=== PATIENT | female | born 1965 | race Caucasian/White ===

== ENCOUNTER 2018-06-05 13:46 | Inpatient (IN) | payer OTHER ==
[2018-06-05] MEDS ORDERED: morphine 4 MG/ML VIAL IV (14:00)
[2018-06-05 14:19] LABS: ADD MAN DIFF? NO
[2018-06-05 14:25] LABS: BASOPHIL # 0.1 10^3/ul (0.0-0.1); BASOPHILS % 0.5 % (0.0-2.0); EOSINOPHILS # 0.1 10^3/ul (0.0-0.5); EOSINOPHILS % 0.5 % (0.0-7.0); HEMOGLOBIN 11.1 g/dl (12.0-16.0); LYMPHOCYTES % 16.3 % (15.0-51.0); MEAN CORPUSCULAR HEMOGLOBIN 22.8 pg (29.0-33.0); MEAN CORPUSCULAR HGB CONC 31.7 g/dl (32.0-37.0); MEAN CORPUSCULAR VOLUME 71.9 fl (82.0-101.0); MEAN PLATELET VOLUME 9.6 fl (7.4-10.4); MONOCYTE # 0.9 10^3/ul (0.3-0.9); MONOCYTES % 7.3 % (0.0-11.0); NEUTROPHIL # 9.4 10^3/ul (1.6-7.5); NEUTROPHILS % 74.8 % (39.0-77.0); PLATELET COUNT 265 10^3/UL (140-415); RED BLOOD COUNT 4.87 10^6/ul (4.20-5.40); RED CELL DISTRIBUTION WIDTH 15.8 % (11.5-14.5)
[2018-06-05 14:25] LABS: WHITE BLOOD COUNT 12.5 10^3/ul (4.8-10.8)
[2018-06-05 14:42] LABS: ALANINE AMINOTRANSFERASE 27 IU/L (13-69); ALBUMIN 4.6 g/dl (3.3-4.9); ALBUMIN/GLOBULIN RATIO 1.35; ALKALINE PHOSPHATASE 100 IU/L (42-121); ANION GAP 14 (5-13); ASPARTATE AMINO TRANSFERASE 31 IU/L (15-46); BILIRUBIN,INDIRECT 0.4 mg/dl (0-1.1); BILIRUBIN,TOTAL 0.4 mg/dl (0.2-1.3); BLOOD UREA NITROGEN 13 mg/dl (7-20); CALCIUM 9.6 mg/dl (8.4-10.2); CARBON DIOXIDE 25 mmol/L (21-31); CHLORIDE 101 mmol/L (97-110); CREATININE 0.41 mg/dl (0.44-1.00); Estimated GFR > 60 mL/min (>60); GLUCOSE 119 mg/dl (70-220); LIPASE 60 U/L (23-300); POTASSIUM 3.5 mmol/L (3.5-5.1); SODIUM 140 mmol/L (135-144)
[2018-06-05] MEDS: HYDROmorphONE 0.5 MG/0.5 ML SYG IV ×2 (14:57→20:13)
[2018-06-05] MEDS: ONDANSETRON 4 MG INJ IV ×2 (14:57→20:12)
[2018-06-05] MEDS: SOD CHLORIDE 0.9% 1,000 ML IV (15:28)
[2018-06-05] MEDS: HYDROmorphONE 2 MG/ML SYG IV ×2 (15:28→16:53)
[2018-06-05 16:15] LABS: ADD UMIC NO; UR ASCORBIC ACID NEGATIVE (NEGATIVE); UR BILIRUBIN (Dip) NEGATIVE (NEGATIVE); UR BLOOD (Dip) NEGATIVE (NEGATIVE); UR CLARITY CLEAR (CLEAR); UR COLOR YELLOW (YELLOW); UR GLUCOSE (Dip) NEGATIVE (NEGATIVE); UR KETONES (Dip) NEGATIVE (NEGATIVE); UR LEUKOCYTE ESTERASE (Dip) NEGATIVE Leu/ul (NEGATIVE); UR NITRITE (Dip) NEGATIVE (NEGATIVE); UR SPECIFIC GRAVITY (Dip) 1.024 (1.003-1.030); UR TOTAL PROTEIN (Dip) NEGATIVE (NEGATIVE); UR UROBILINOGEN (Dip) NEGATIVE (NEGATIVE)
[2018-06-05 16:39] LABS: OCCULT BLOOD STOOL POSITIVE (NEGATIVE)
[2018-06-05] MEDS ORDERED: ACETAMINOPHEN 325 MG TAB PO (17:30)
[2018-06-05] MEDS ORDERED: ONDANSETRON 4 MG INJ IV (17:30)
[2018-06-05] MEDS ORDERED: NACL 0.9% 3 ML SYG IV (20:00)
[2018-06-05] MEDS: FAMOTIDINE 20 MG INJ IV (20:12)
[2018-06-05] MEDS: DEXTROSE 5%-0.45% NACL 1,000 ML IV (22:06)
[2018-06-05] MEDS: HYDROmorphONE 1 MG/ML SYG IV (22:15)
[2018-06-06] MEDS: HYDROmorphONE 1 MG/ML SYG IV ×3 (01:18→07:13)
[2018-06-06] MEDS: ONDANSETRON 4 MG INJ IV ×2 (03:17→16:01)
[2018-06-06] MEDS: DEXTROSE 5%-0.45% NACL 1,000 ML IV ×4 (03:34→22:01)
[2018-06-06 05:45] LABS: ABNORMAL IP MESSAGE 1; HEMATOCRIT 37.7 % (37.0-47.0); MEAN CORPUSCULAR HEMOGLOBIN 22.7 pg (29.0-33.0); MEAN CORPUSCULAR HGB CONC 31.8 g/dl (32.0-37.0); MEAN CORPUSCULAR VOLUME 71.3 fl (82.0-101.0); MEAN PLATELET VOLUME 10.5 fl (7.4-10.4); PLATELET COUNT 335 10^3/UL (140-415); RED BLOOD COUNT 5.29 10^6/ul (4.20-5.40); RED CELL DISTRIBUTION WIDTH 16.1 % (11.5-14.5)
[2018-06-06 05:45] LABS: WHITE BLOOD COUNT 25.4 10^3/ul (4.8-10.8)
[2018-06-06 05:54] LABS: ADD MAN DIFF? YES; POSITIVE DIFF @See below
[2018-06-06 06:28] LABS: ALANINE AMINOTRANSFERASE 24 IU/L (13-69); ALBUMIN/GLOBULIN RATIO 1.33; ALKALINE PHOSPHATASE 90 IU/L (42-121); ANION GAP 12 (5-13); ASPARTATE AMINO TRANSFERASE 21 IU/L (15-46); BILIRUBIN,INDIRECT 0.5 mg/dl (0-1.1); BILIRUBIN,TOTAL 0.5 mg/dl (0.2-1.3); BLOOD UREA NITROGEN 17 mg/dl (7-20); CALCIUM 8.8 mg/dl (8.4-10.2); CARBON DIOXIDE 21 mmol/L (21-31); CHLORIDE 104 mmol/L (97-110); CREATININE 0.47 mg/dl (0.44-1.00); Estimated GFR > 60 mL/min (>60); GLUCOSE 175 mg/dl (70-220); MAGNESIUM 1.8 mg/dl (1.7-2.5); POTASSIUM 3.6 mmol/L (3.5-5.1); SODIUM 137 mmol/L (135-144)
[2018-06-06] MEDS: LEVOTHYROXINE 25 MCG TAB PO (07:30)
[2018-06-06] MEDS ORDERED: PANTOPRAZOLE (EC) 40 MG TAB PO (07:30)
[2018-06-06 08:02] LABS: ANISOCYTOSIS 2+ (0-0); BAND NEUTROPHILS #M 1.7 10^3/ul (0.0-0.6); BAND NEUTROPHILS % (M) 7 % (0-4); ELLIPTO 1+ (0-0); LYMPHOCYTES #M 1.2 10^3/ul (0.8-2.9); LYMPHOCYTES % (M) 5 % (15-51); MICROCYTOSIS 2+ (0-0); MONOCYTE #M 0.5 10^3/ul (0.3-0.9); MONOCYTES % (M) 2 % (0-11); OVALOCYTES 1+ (0-0); PLATELET ESTIMATE NORMAL; POIKILOCYTOSIS 3+ (0-0); POLYCHROMASIA 1+ (0-0); REACTIVE LYMPHOCYTES% (M) 4 % (0-0); SEG NEUT #M 21.3 10^3/ul (1.6-7.5); SEGMENTED NEUTROPHILS (M) % 82 % (39-77); SMUDGE%M 4 % (0-0)
[2018-06-06] MEDS: FAMOTIDINE 20 MG INJ IV ×2 (08:18→20:29)
[2018-06-06] MEDS: oxyCODONE (CR) 15 MG TAB [oxyCONTIN] PO ×2 (08:18→20:29)
[2018-06-06] MEDS: DULOXETINE 30 MG CAP DR PO (08:18)
[2018-06-06] MEDS: HYDROmorphONE 2 MG/ML SYG IV ×4 (10:21→22:05)
[2018-06-06] MEDS ORDERED: RIFAXIMIN 550 MG TAB PO (14:00)
[2018-06-06] MEDS: metroNIDAZOLE 500 MG TAB PO ×2 (14:16→22:01)
[2018-06-06] MEDS: LACTATED RINGER'S 500 ML IV (14:18)
[2018-06-06 14:20] LABS: THYROID STIMULATING HORMONE 0.882 MIU/L (0.465-4.680)
[2018-06-06] MEDS: VANCOMYCIN HCL 250 MG/5ML POSYG PO ×2 (15:02→18:48)
[2018-06-07] MEDS: ONDANSETRON 4 MG INJ IV ×2 (00:39→12:04)
[2018-06-07] MEDS: VANCOMYCIN HCL 250 MG/5ML POSYG PO ×5 (01:39→22:53)
[2018-06-07] MEDS: DIPHENHYDRAMINE 50 MG INJ IV (01:39)
[2018-06-07] MEDS: HYDROmorphONE 2 MG/ML SYG IV ×6 (02:02→22:52)
[2018-06-07] MEDS: ALTEPLASE (CATHFLO) 2 MG INJ CATHETER ×2 (06:18→07:02)
[2018-06-07] MEDS: LEVOTHYROXINE 50 MCG TAB PO (07:06)
[2018-06-07] MEDS: metroNIDAZOLE 500 MG TAB PO ×3 (07:07→21:10)
[2018-06-07] MEDS: oxyCODONE (CR) 15 MG TAB [oxyCONTIN] PO ×2 (08:31→20:30)
[2018-06-07] MEDS: FAMOTIDINE 20 MG INJ IV ×2 (08:31→20:31)
[2018-06-07] MEDS: DULOXETINE 30 MG CAP DR PO (08:32)
[2018-06-07] MEDS: DEXTROSE 5%-0.45% NACL 1,000 ML IV ×2 (09:12→16:41)
[2018-06-07 10:59] LABS: ADD MAN DIFF? NO
[2018-06-07 11:02] LABS: HEMOGLOBIN 8.7 g/dl (12.0-16.0); RED BLOOD COUNT 3.79 10^6/ul (4.20-5.40)
[2018-06-07 11:02] LABS: WHITE BLOOD COUNT 21.3 10^3/ul (4.8-10.8)
[2018-06-07 11:03] LABS: BASOPHIL # 0.1 10^3/ul (0.0-0.1); BASOPHILS % 0.4 % (0.0-2.0); EOSINOPHILS # 0.1 10^3/ul (0.0-0.5); EOSINOPHILS % 0.7 % (0.0-7.0); HEMATOCRIT 27.5 % (37.0-47.0); LYMPHOCYTES # 2.6 10^3/ul (0.8-2.9); LYMPHOCYTES % 12.2 % (15.0-51.0); MEAN CORPUSCULAR HGB CONC 31.6 g/dl (32.0-37.0); MEAN CORPUSCULAR VOLUME 72.6 fl (82.0-101.0); MEAN PLATELET VOLUME 10.7 fl (7.4-10.4); MONOCYTE # 1.2 10^3/ul (0.3-0.9); MONOCYTES % 5.4 % (0.0-11.0); NEUTROPHIL # 17.1 10^3/ul (1.6-7.5); NEUTROPHILS % 80.4 % (39.0-77.0); PLATELET COUNT 251 10^3/UL (140-415); RED CELL DISTRIBUTION WIDTH 15.7 % (11.5-14.5)
[2018-06-07 11:33] LABS: ALANINE AMINOTRANSFERASE 16 IU/L (13-69); ALBUMIN 3.2 g/dl (3.3-4.9); ALBUMIN/GLOBULIN RATIO 1.33; ALKALINE PHOSPHATASE 67 IU/L (42-121); ANION GAP 8 (5-13); ASPARTATE AMINO TRANSFERASE 16 IU/L (15-46); BILIRUBIN,INDIRECT 0.4 mg/dl (0-1.1); BILIRUBIN,TOTAL 0.4 mg/dl (0.2-1.3); BLOOD UREA NITROGEN 7 mg/dl (7-20); CARBON DIOXIDE 25 mmol/L (21-31); CHLORIDE 100 mmol/L (97-110); CREATININE 0.43 mg/dl (0.44-1.00); Estimated GFR > 60 mL/min (>60); GLUCOSE 364 mg/dl (70-220); POTASSIUM 3.3 mmol/L (3.5-5.1); SODIUM 133 mmol/L (135-144); TOTAL PROTEIN 5.6 g/dl (6.1-8.1)
[2018-06-07 12:25] LABS: ERYTHROCYTE SEDIMENTATION RATE 22 mm/Hr (0-30)
[2018-06-07 14:58] LABS: C-REACTIVE PROTEIN 6.9 mg/dl (0.0-0.9)
[2018-06-07] MEDS: POTASSIUM CHLORIDE (SR) 20 MEQ TAB PO (16:38)
[2018-06-08] MEDS: DEXTROSE 5%-0.45% NACL 1,000 ML IV ×3 (00:40→19:34)
[2018-06-08] MEDS: HYDROmorphONE 2 MG/ML SYG IV ×6 (02:56→22:45)
[2018-06-08] MEDS: LEVOTHYROXINE 50 MCG TAB PO (06:27)
[2018-06-08] MEDS: metroNIDAZOLE 500 MG TAB PO ×3 (06:27→21:06)
[2018-06-08] MEDS: VANCOMYCIN HCL 250 MG/5ML POSYG PO ×4 (06:27→23:27)
[2018-06-08] MEDS: oxyCODONE (CR) 15 MG TAB [oxyCONTIN] PO ×2 (09:16→21:07)
[2018-06-08] MEDS: FAMOTIDINE 20 MG INJ IV ×2 (09:52→21:07)
[2018-06-08] MEDS: DULOXETINE 30 MG CAP DR PO (09:52)
[2018-06-08 12:10] LABS: WHITE BLOOD COUNT 8.3 10^3/ul (4.8-10.8)
[2018-06-08 12:10] LABS: ADD MAN DIFF? NO; BASOPHILS % 0.4 % (0.0-2.0); EOSINOPHILS # 0.2 10^3/ul (0.0-0.5); EOSINOPHILS % 1.9 % (0.0-7.0); HEMATOCRIT 23.4 % (37.0-47.0); HEMOGLOBIN 7.3 g/dl (12.0-16.0); LYMPHOCYTES # 1.4 10^3/ul (0.8-2.9); LYMPHOCYTES % 17.3 % (15.0-51.0); MEAN CORPUSCULAR HEMOGLOBIN 22.9 pg (29.0-33.0); MEAN CORPUSCULAR HGB CONC 31.2 g/dl (32.0-37.0); MEAN CORPUSCULAR VOLUME 73.4 fl (82.0-101.0); MEAN PLATELET VOLUME 10.6 fl (7.4-10.4); MONOCYTE # 0.5 10^3/ul (0.3-0.9); MONOCYTES % 5.8 % (0.0-11.0); NEUTROPHIL # 6.2 10^3/ul (1.6-7.5); NEUTROPHILS % 74.2 % (39.0-77.0); PLATELET COUNT 211 10^3/UL (140-415); RED BLOOD COUNT 3.19 10^6/ul (4.20-5.40); RED CELL DISTRIBUTION WIDTH 15.7 % (11.5-14.5)
[2018-06-08] MEDS: DIPHENHYDRAMINE 50 MG INJ IV ×2 (14:03→23:29)
[2018-06-08 14:19] LABS: IMMEDIATE SPIN CROSSMATCH 1 1
[2018-06-08] MEDS: ZOLPIDEM 5 MG TAB PO ×2 (21:07→23:20)
[2018-06-08] MEDS ORDERED: ARTIFICIAL TEARS 15 ML OPH BOTH EYES (22:00)
[2018-06-09] MEDS: HYDROmorphONE 1 MG/ML SYG IV (01:21)
[2018-06-09] MEDS: HYDROmorphONE 2 MG/ML SYG IV ×7 (02:51→23:33)
[2018-06-09] MEDS: LORAZEPAM 2 MG INJ IV (04:52)
[2018-06-09 05:15] LABS: ADD MAN DIFF? NO
[2018-06-09 05:26] LABS: WHITE BLOOD COUNT 4.5 10^3/ul (4.8-10.8)
[2018-06-09 05:26] LABS: BASOPHILS % 0.9 % (0.0-2.0); EOSINOPHILS # 0.2 10^3/ul (0.0-0.5); EOSINOPHILS % 3.4 % (0.0-7.0); HEMATOCRIT 25.5 % (37.0-47.0); HEMOGLOBIN 7.9 g/dl (12.0-16.0); LYMPHOCYTES % 22.4 % (15.0-51.0); MEAN CORPUSCULAR HEMOGLOBIN 23.2 pg (29.0-33.0); MEAN CORPUSCULAR VOLUME 74.8 fl (82.0-101.0); MEAN PLATELET VOLUME 10.5 fl (7.4-10.4); MONOCYTE # 0.3 10^3/ul (0.3-0.9); MONOCYTES % 6.7 % (0.0-11.0); NEUTROPHILS % 66.2 % (39.0-77.0); PLATELET COUNT 176 10^3/UL (140-415); RED BLOOD COUNT 3.41 10^6/ul (4.20-5.40); RED CELL DISTRIBUTION WIDTH 15.7 % (11.5-14.5)
[2018-06-09] MEDS: ARTIFICIAL TEARS 15 ML OPH BOTH EYES ×2 (05:27→21:50)
[2018-06-09] MEDS: DEXTROSE 5%-0.45% NACL 1,000 ML IV (05:29)
[2018-06-09 05:47] LABS: PHOSPHORUS 3.1 mg/dl (2.5-4.9)
[2018-06-09 05:47] LABS: MAGNESIUM 1.4 mg/dl (1.7-2.5)
[2018-06-09] MEDS: VANCOMYCIN HCL 250 MG/5ML POSYG PO ×4 (06:03→23:34)
[2018-06-09] MEDS: metroNIDAZOLE 500 MG TAB PO ×3 (06:03→21:12)
[2018-06-09] MEDS: DIPHENHYDRAMINE 50 MG INJ IV ×3 (06:03→23:33)
[2018-06-09] MEDS: LEVOTHYROXINE 50 MCG TAB PO (06:03)
[2018-06-09 06:08] LABS: ALANINE AMINOTRANSFERASE 21 IU/L (13-69); ALBUMIN 2.9 g/dl (3.3-4.9); ALBUMIN/GLOBULIN RATIO 1.31; ALKALINE PHOSPHATASE 58 IU/L (42-121); ANION GAP 8 (5-13); ASPARTATE AMINO TRANSFERASE 24 IU/L (15-46); BILIRUBIN,INDIRECT 0.2 mg/dl (0-1.1); BILIRUBIN,TOTAL 0.2 mg/dl (0.2-1.3); CALCIUM 7.5 mg/dl (8.4-10.2); CARBON DIOXIDE 28 mmol/L (21-31); CHLORIDE 99 mmol/L (97-110); CREATININE 0.37 mg/dl (0.44-1.00); Estimated GFR > 60 mL/min (>60); SODIUM 135 mmol/L (135-144); TOTAL PROTEIN 5.1 g/dl (6.1-8.1)
[2018-06-09 06:30] LABS: BLOOD UREA NITROGEN < 2 mg/dl (7-20)
[2018-06-09 06:31] LABS: POTASSIUM 2.5 mmol/L (3.5-5.1)
[2018-06-09 06:32] LABS: GLUCOSE 484 mg/dl (70-220)
[2018-06-09 06:42] LABS: HEMOGLOBIN A1C 5.4 % (0-5.9)
[2018-06-09] MEDS: CHOLECALCIFEROL 2,000 UNIT CAP PO (09:00)
[2018-06-09] MEDS: ZINC SULFATE 220 MG CAP PO (09:00)
[2018-06-09] MEDS: DULOXETINE 30 MG CAP DR PO (09:00)
[2018-06-09] MEDS: FAMOTIDINE 20 MG INJ IV ×2 (09:13→21:12)
[2018-06-09] MEDS ORDERED: GLUCOSE GEL 15 GRAM TUBE BUCCAL (10:30)
[2018-06-09] MEDS ORDERED: GLUCOSE GEL 15 GRAM TUBE PO ×2 (10:30)
[2018-06-09] MEDS ORDERED: GLUCAGON 1 MG INJ IM (10:30)
[2018-06-09] MEDS: INSULIN ASPART [NOVOLOG] 3 ML PEN SC ×4 (10:30→21:41)
[2018-06-09] MEDS ORDERED: DEXTROSE 50% 50 ML SYRINGE IV ×2 (10:30)
[2018-06-09] MEDS: POTASSIUM CHLORIDE 40 MEQ in SOD CHLORIDE 0.9% 1,000 ML IV ×3 (10:37→21:41)
[2018-06-09 10:38] LABS: IRON 77 ug/dl (35-150)
[2018-06-09] MEDS: METHYLNALTREXONE 12 MG/0.6 ML VIAL SC (10:38)
[2018-06-09 10:48] LABS: % IRON SATURATION 38 % SAT (22-52); TOTAL IRON BINDING CAPACITY 202 ug/dl (241-421)
[2018-06-09] MEDS: MAGNESIUM SULFATE 3 GM in DEXTROSE 5% 100 ML IVPB (11:01)
[2018-06-09 13:27] LABS: ANCA SCREEN NEGATIVE (NEGATIVE)
[2018-06-09 16:04] LABS: POTASSIUM 3.2 mmol/L (3.5-5.1)
[2018-06-09] MEDS: PROPOFOL 60 ML (16:28)
[2018-06-09] MEDS ORDERED: METOCLOPRAMIDE 10 MG INJ IV (16:30)
[2018-06-09] MEDS ORDERED: HYDROmorphONE 1 MG/5 ML IV SYRINGE IV (16:30)
[2018-06-09] MEDS ORDERED: EPHEDrine SULFATE 50 MG/5 ML SYG IV (16:30)
[2018-06-09] MEDS ORDERED: hydrALAzine 20 MG INJ IV (16:30)
[2018-06-09] MEDS ORDERED: ONDANSETRON 4 MG INJ IV (16:30)
[2018-06-09] MEDS ORDERED: LABETALOL HCL 20MG INJ IV (16:30)
[2018-06-09] MEDS ORDERED: FENTAnyl 50 MCG/ML VIAL IV ×2 (16:30)
[2018-06-09 16:31] LABS: MYELOPEROXIDASE ANTIBODY <1.0 AI; PROTEINASE-3 ANTIBODY <1.0 AI
[2018-06-09] MEDS: ZOLPIDEM 5 MG TAB PO ×2 (21:12→21:48)
[2018-06-10] MEDS: INSULIN ASPART [NOVOLOG] 3 ML PEN SC ×5 (02:30→20:33)
[2018-06-10] MEDS: HYDROmorphONE 2 MG/ML SYG IV ×8 (02:49→21:58)
[2018-06-10 05:38] LABS: ADD MAN DIFF? NO
[2018-06-10 05:41] LABS: BASOPHILS % 0.8 % (0.0-2.0); EOSINOPHILS # 0.1 10^3/ul (0.0-0.5); HEMATOCRIT 27.4 % (37.0-47.0); HEMOGLOBIN 8.5 g/dl (12.0-16.0); LYMPHOCYTES # 0.8 10^3/ul (0.8-2.9); MEAN CORPUSCULAR VOLUME 74.1 fl (82.0-101.0); MONOCYTE # 0.3 10^3/ul (0.3-0.9); NEUTROPHIL # 2.5 10^3/ul (1.6-7.5); NEUTROPHILS % 67.9 % (39.0-77.0); PLATELET COUNT 215 10^3/UL (140-415); RED CELL DISTRIBUTION WIDTH 15.9 % (11.5-14.5)
[2018-06-10 05:41] LABS: WHITE BLOOD COUNT 3.7 10^3/ul (4.8-10.8)
[2018-06-10 06:11] LABS: MAGNESIUM 2.2 mg/dl (1.7-2.5)
[2018-06-10 06:11] LABS: PHOSPHORUS 4.4 mg/dl (2.5-4.9)
[2018-06-10] MEDS: metroNIDAZOLE 500 MG TAB PO ×3 (06:13→21:58)
[2018-06-10] MEDS: LEVOTHYROXINE 50 MCG TAB PO (06:13)
[2018-06-10 06:14] LABS: ANION GAP 9 (5-13); BLOOD UREA NITROGEN 3 mg/dl (7-20); CALCIUM 8.3 mg/dl (8.4-10.2); CARBON DIOXIDE 33 mmol/L (21-31); CHLORIDE 101 mmol/L (97-110); CREATININE 0.42 mg/dl (0.44-1.00); Estimated GFR > 60 mL/min (>60); GLUCOSE 87 mg/dl (70-220); POTASSIUM 3.7 mmol/L (3.5-5.1); SODIUM 143 mmol/L (135-144)
[2018-06-10] MEDS: VANCOMYCIN HCL 250 MG/5ML POSYG PO ×3 (06:14→17:33)
[2018-06-10] MEDS: DIPHENHYDRAMINE 50 MG INJ IV ×2 (06:14→12:46)
[2018-06-10] MEDS: POTASSIUM CHLORIDE 40 MEQ in SOD CHLORIDE 0.9% 1,000 ML IV ×3 (06:22→16:00)
[2018-06-10] MEDS: ARTIFICIAL TEARS 15 ML OPH BOTH EYES (06:24)
[2018-06-10] MEDS: DULOXETINE 30 MG CAP DR PO (08:51)
[2018-06-10] MEDS: ZINC SULFATE 220 MG CAP PO (08:51)
[2018-06-10] MEDS: FAMOTIDINE 20 MG INJ IV (08:51)
[2018-06-10] MEDS: CHOLECALCIFEROL 2,000 UNIT CAP PO (08:51)
[2018-06-10] MEDS: CIPROFLOXACIN 0.3% 2.5 ML OPH BOTH EYES ×4 (08:52→20:33)
[2018-06-10] MEDS: LORAZEPAM 2 MG INJ IV ×3 (14:36→21:21)
[2018-06-10 15:12] LABS: HEMATOCRIT 28.9 % (37.0-47.0); HEMOGLOBIN 9.1 g/dl (12.0-16.0)
[2018-06-10] MEDS: PANTOPRAZOLE 40 MG INJ IV (17:33)
[2018-06-10] MEDS ORDERED: INSULIN ASPART [NOVOLOG] 3 ML PEN SC (21:00)
[2018-06-11] MEDS: ARTIFICIAL TEARS 15 ML OPH BOTH EYES
[2018-06-11] MEDS: VANCOMYCIN HCL 250 MG/5ML POSYG PO ×5 (00:01→23:07)
[2018-06-11] MEDS: POTASSIUM CHLORIDE 40 MEQ in SOD CHLORIDE 0.9% 1,000 ML IV ×4 (00:02→20:30)
[2018-06-11] MEDS: HYDROmorphONE 2 MG/ML SYG IV ×11 (01:19→23:07)
[2018-06-11 06:00] LABS: ADD MAN DIFF? NO
[2018-06-11 06:11] LABS: WHITE BLOOD COUNT 3.5 10^3/ul (4.8-10.8)
[2018-06-11 06:11] LABS: BASOPHILS % 0.9 % (0.0-2.0); EOSINOPHILS # 0.1 10^3/ul (0.0-0.5); EOSINOPHILS % 3.5 % (0.0-7.0); HEMATOCRIT 27.4 % (37.0-47.0); HEMOGLOBIN 8.6 g/dl (12.0-16.0); MEAN CORPUSCULAR HEMOGLOBIN 23.3 pg (29.0-33.0); MEAN CORPUSCULAR HGB CONC 31.4 g/dl (32.0-37.0); MEAN CORPUSCULAR VOLUME 74.3 fl (82.0-101.0); MEAN PLATELET VOLUME 10.8 fl (7.4-10.4); MONOCYTE # 0.3 10^3/ul (0.3-0.9); MONOCYTES % 9.2 % (0.0-11.0); NEUTROPHILS % 58.1 % (39.0-77.0); PLATELET COUNT 229 10^3/UL (140-415); RED BLOOD COUNT 3.69 10^6/ul (4.20-5.40); RED CELL DISTRIBUTION WIDTH 15.9 % (11.5-14.5)
[2018-06-11] MEDS: metroNIDAZOLE 500 MG TAB PO ×3 (06:24→21:20)
[2018-06-11 06:25] LABS: INR 1.01; PROTIME 13.4 Sec (11.9-14.9)
[2018-06-11] MEDS: DIPHENHYDRAMINE 50 MG INJ IV ×4 (06:25→23:07)
[2018-06-11] MEDS: LEVOTHYROXINE 50 MCG TAB PO (06:25)
[2018-06-11] MEDS: PANTOPRAZOLE 40 MG INJ IV ×2 (06:25→17:13)
[2018-06-11 06:32] LABS: PHOSPHORUS 4.4 mg/dl (2.5-4.9)
[2018-06-11 06:32] LABS: MAGNESIUM 1.8 mg/dl (1.7-2.5)
[2018-06-11] MEDS: INSULIN ASPART [NOVOLOG] 3 ML PEN SC ×4 (06:41→20:43)
[2018-06-11 06:55] LABS: ALANINE AMINOTRANSFERASE 42 IU/L (13-69); ALBUMIN 3.3 g/dl (3.3-4.9); ALBUMIN/GLOBULIN RATIO 1.32; ALKALINE PHOSPHATASE 60 IU/L (42-121); ANION GAP 6 (5-13); ASPARTATE AMINO TRANSFERASE 53 IU/L (15-46); BILIRUBIN,INDIRECT 0.3 mg/dl (0-1.1); BILIRUBIN,TOTAL 0.3 mg/dl (0.2-1.3); BLOOD UREA NITROGEN 6 mg/dl (7-20); CARBON DIOXIDE 30 mmol/L (21-31); CHLORIDE 104 mmol/L (97-110); CREATININE 0.44 mg/dl (0.44-1.00); Estimated GFR > 60 mL/min (>60); GLUCOSE 93 mg/dl (70-220); POTASSIUM 4.2 mmol/L (3.5-5.1); SODIUM 140 mmol/L (135-144); TOTAL PROTEIN 5.8 g/dl (6.1-8.1)
[2018-06-11] MEDS: ZINC SULFATE 220 MG CAP PO (07:45)
[2018-06-11] MEDS: DULOXETINE 30 MG CAP DR PO (07:45)
[2018-06-11] MEDS: CIPROFLOXACIN 0.3% 2.5 ML OPH BOTH EYES ×4 (07:46→20:30)
[2018-06-11] MEDS: CHOLECALCIFEROL 2,000 UNIT CAP PO (07:46)
[2018-06-11] MEDS: METHYLNALTREXONE 12 MG/0.6 ML VIAL SC (07:53)
[2018-06-11] MEDS: LORAZEPAM 2 MG INJ IV ×2 (09:06→20:29)
[2018-06-11 16:55] LABS: RETICULOCYTE COUNT # 0.079 X10^6 (0.020-0.110)
[2018-06-11 16:58] LABS: IRON 147 ug/dl (35-150)
[2018-06-11 17:12] LABS: % IRON SATURATION 74 % SAT (22-52); TOTAL IRON BINDING CAPACITY 200 ug/dl (241-421)
[2018-06-11 17:13] LABS: LACTATE DEHYDROGENASE 421 IU/L (313-618)
[2018-06-11 18:21] LABS: FOLATE 13.4 ng/ml (2.8-20.0)
[2018-06-11] MEDS: ZOLPIDEM 5 MG TAB PO ×2 (23:07→23:18)
[2018-06-12] MEDS: IOHEXOL 300MG/ML 150 ML BTL (00:31)
[2018-06-12] MEDS: SOD CHLORIDE 0.9% 100 ML (00:31)
[2018-06-12] MEDS: HYDROmorphONE 2 MG/ML SYG IV ×7 (02:28→21:05)
[2018-06-12] MEDS: metroNIDAZOLE 500 MG TAB PO ×3 (05:29→21:04)
[2018-06-12] MEDS: VANCOMYCIN HCL 250 MG/5ML POSYG PO ×2 (05:30→11:38)
[2018-06-12] MEDS: PANTOPRAZOLE 40 MG INJ IV ×2 (05:32→18:02)
[2018-06-12] MEDS: LEVOTHYROXINE 50 MCG TAB PO (05:34)
[2018-06-12] MEDS: DIPHENHYDRAMINE 50 MG INJ IV ×2 (05:34→11:38)
[2018-06-12] MEDS: INSULIN ASPART [NOVOLOG] 3 ML PEN SC ×4 (07:00→21:00)
[2018-06-12 07:42] LABS: HEMATOCRIT 28.3 % (35.0-45.0); HEMOGLOBIN 8.9 g/dL (11.7-15.5); MCH 23.2 pg (27.0-33.0); MCV 73.9 fL (80.0-100.0); RDW 16.5 % (11.0-15.0); RED BLOOD CELL COUNT 3.83 Million/uL (3.80-5.10)
[2018-06-12] MEDS: ZINC SULFATE 220 MG CAP PO (07:42)
[2018-06-12] MEDS: CHOLECALCIFEROL 2,000 UNIT CAP PO (07:42)
[2018-06-12] MEDS: DULOXETINE 30 MG CAP DR PO (07:42)
[2018-06-12] MEDS: POTASSIUM CHLORIDE 40 MEQ in SOD CHLORIDE 0.9% 1,000 ML IV ×3 (07:42→21:09)
[2018-06-12] MEDS: CIPROFLOXACIN 0.3% 2.5 ML OPH BOTH EYES ×4 (07:44→21:16)
[2018-06-12 08:25] LABS: PROTEIN, TOTAL 5.6 g/dL (6.1-8.1)
[2018-06-12 10:21] LABS: RETICULOCYTE COUNT # 0.067 X10^6 (0.020-0.110); RETICULOCYTE COUNT % 1.8 % (0.5-1.5)
[2018-06-12 10:21] LABS: RETICULOCYTE RBC 3.68
[2018-06-12 10:41] LABS: LACTATE DEHYDROGENASE 424 IU/L (313-618)
[2018-06-12 11:12] LABS: THYROID STIMULATING HORMONE 0.811 MIU/L (0.465-4.680)
[2018-06-12 11:46] LABS: FOLATE 10.8 ng/ml (2.8-20.0)
[2018-06-12] MEDS: FENTAnyl 50 MCG/ML VIAL ×3 (12:55→13:30)
[2018-06-12] MEDS: SOD CHLORIDE 0.9% 500 ML (12:56)
[2018-06-12] MEDS: ALTEPLASE (CATHFLO) 2 MG INJ CATHETER (13:00)
[2018-06-12] MEDS: LIDOCAINE 1% (MPF) 5 ML VIAL (13:30)
[2018-06-12] MEDS: DIPHENHYDRAMINE 50 MG INJ (14:02)
[2018-06-12] MEDS: ZOLPIDEM 5 MG TAB PO (21:05)
[2018-06-12 22:23] LABS: ALBUMIN 3.2 g/dL (3.8-4.8); ALPHA-1-GLOBULINS 0.4 g/dL (0.2-0.3); ALPHA-2-GLOBULINS 0.7 g/dL (0.5-0.9); BETA 2 GLOBULINS 0.2 g/dL (0.2-0.5); BETA GLOBULINS 0.4 g/dL (0.4-0.6); GAMMA GLOBULINS 0.8 g/dL (0.8-1.7)
[2018-06-12 23:07] LABS: ERYTHROPOIETIN 18.2 mIU/mL (2.6-18.5)
[2018-06-13] MEDS: HYDROmorphONE 2 MG/ML SYG IV ×8 (00:03→21:51)
[2018-06-13] MEDS: LORAZEPAM 2 MG INJ IV ×2 (01:42→22:58)
[2018-06-13] MEDS: PANTOPRAZOLE 40 MG INJ IV ×2 (06:14→17:11)
[2018-06-13] MEDS: metroNIDAZOLE 500 MG TAB PO (06:15)
[2018-06-13] MEDS: LEVOTHYROXINE 50 MCG TAB PO (06:15)
[2018-06-13 07:25] LABS: HIV 1&2 ANTIBODY NEGATIVE (NEGATIVE)
[2018-06-13] MEDS: INSULIN ASPART [NOVOLOG] 3 ML PEN SC (08:07)
[2018-06-13] MEDS: CIPROFLOXACIN 0.3% 2.5 ML OPH BOTH EYES ×4 (08:09→21:00)
[2018-06-13] MEDS: ZINC SULFATE 220 MG CAP PO (08:22)
[2018-06-13] MEDS: DULOXETINE 30 MG CAP DR PO (08:22)
[2018-06-13] MEDS: CHOLECALCIFEROL 2,000 UNIT CAP PO (08:22)
[2018-06-13] MEDS: DIPHENHYDRAMINE 50 MG INJ IV ×3 (08:23→21:52)
[2018-06-13] MEDS: METHYLNALTREXONE 12 MG/0.6 ML VIAL SC (09:45)
[2018-06-13] MEDS: POTASSIUM CHLORIDE 40 MEQ in SOD CHLORIDE 0.9% 1,000 ML IV ×2 (09:45→18:38)
[2018-06-13 10:22] LABS: HEMOGLOBIN A 91.1 % (>96.0); HEMOGLOBIN A2 (QUANT) 4.6 % (1.8-3.5); HEMOGLOBIN F 4.3 % (<2.0)
[2018-06-13] MEDS: SOD CHLORIDE 0.9% 100 ML (13:23)
[2018-06-13] MEDS: IOHEXOL 100 ML (13:23)
[2018-06-13 14:12] LABS: HAPTOGLOBIN 162 mg/dL (43-212)
[2018-06-13] MEDS: CEPASTAT LOZENGE MT ×2 (15:31→21:54)
[2018-06-14] MEDS: ZOLPIDEM 5 MG TAB PO (00:23)
[2018-06-14] MEDS: POTASSIUM CHLORIDE 40 MEQ in SOD CHLORIDE 0.9% 1,000 ML IV ×2 (02:00→04:23)
[2018-06-14] MEDS: HYDROmorphONE 2 MG/ML SYG IV ×7 (02:03→20:48)
[2018-06-14] MEDS: CEPASTAT LOZENGE MT ×4 (02:14→20:48)
[2018-06-14] MEDS: PANTOPRAZOLE 40 MG INJ IV ×2 (05:22→17:24)
[2018-06-14] MEDS: LEVOTHYROXINE 50 MCG TAB PO (05:23)
[2018-06-14] MEDS: DIPHENHYDRAMINE 50 MG INJ IV ×3 (05:23→17:50)
[2018-06-14 05:50] LABS: ADD MAN DIFF? NO
[2018-06-14 05:55] LABS: WHITE BLOOD COUNT 3.9 10^3/ul (4.8-10.8)
[2018-06-14 05:55] LABS: EOSINOPHILS # 0.2 10^3/ul (0.0-0.5); EOSINOPHILS % 4.6 % (0.0-7.0); HEMATOCRIT 26.7 % (37.0-47.0); HEMOGLOBIN 8.3 g/dl (12.0-16.0); LYMPHOCYTES # 1.4 10^3/ul (0.8-2.9); LYMPHOCYTES % 34.6 % (15.0-51.0); MEAN CORPUSCULAR HEMOGLOBIN 22.9 pg (29.0-33.0); MEAN CORPUSCULAR HGB CONC 31.1 g/dl (32.0-37.0); MEAN CORPUSCULAR VOLUME 73.8 fl (82.0-101.0); MEAN PLATELET VOLUME 10.5 fl (7.4-10.4); MONOCYTE # 0.4 10^3/ul (0.3-0.9); MONOCYTES % 11.3 % (0.0-11.0); NEUTROPHIL # 1.9 10^3/ul (1.6-7.5); NEUTROPHILS % 47.7 % (39.0-77.0); PLATELET COUNT 229 10^3/UL (140-415); RED BLOOD COUNT 3.62 10^6/ul (4.20-5.40); RED CELL DISTRIBUTION WIDTH 15.9 % (11.5-14.5)
[2018-06-14 06:24] LABS: ALANINE AMINOTRANSFERASE 50 IU/L (13-69); ALBUMIN 3.4 g/dl (3.3-4.9); ALKALINE PHOSPHATASE 62 IU/L (42-121); ANION GAP 6 (5-13); ASPARTATE AMINO TRANSFERASE 53 IU/L (15-46); BILIRUBIN,INDIRECT 0.2 mg/dl (0-1.1); BILIRUBIN,TOTAL 0.2 mg/dl (0.2-1.3); BLOOD UREA NITROGEN 9 mg/dl (7-20); CALCIUM 8.5 mg/dl (8.4-10.2); CARBON DIOXIDE 28 mmol/L (21-31); CHLORIDE 107 mmol/L (97-110); CREATININE 0.44 mg/dl (0.44-1.00); Estimated GFR > 60 mL/min (>60); GLUCOSE 82 mg/dl (70-220); SODIUM 141 mmol/L (135-144)
[2018-06-14 07:03] LABS: POTASSIUM 6.1 mmol/L (3.5-5.1)
[2018-06-14] MEDS: IOHEXOL 300MG/ML 150 ML BTL (07:44)
[2018-06-14] MEDS: SOD CHLORIDE 0.9% 100 ML (07:44)
[2018-06-14] MEDS: DEXTROSE 50% 50 ML SYRINGE IV (08:05)
[2018-06-14] MEDS: INSULIN ASPART [NOVOLOG] 3 ML PEN SC (08:24)
[2018-06-14] MEDS: ALBUTEROL/IPRATROPIUM (NEB) 3 ML AMP HHN (08:25)
[2018-06-14] MEDS: CHOLECALCIFEROL 2,000 UNIT CAP PO (08:29)
[2018-06-14] MEDS: ZINC SULFATE 220 MG CAP PO (08:29)
[2018-06-14] MEDS: CIPROFLOXACIN 0.3% 2.5 ML OPH BOTH EYES ×4 (08:29→20:49)
[2018-06-14] MEDS: DULOXETINE 30 MG CAP DR PO (08:29)
[2018-06-14] MEDS: LORAZEPAM 2 MG INJ IV ×2 (08:56→21:50)
[2018-06-14] MEDS: CALCIUM GLUCONATE 10% 1 GM in DEXTROSE 5% 100 ML IVPB (09:14)
[2018-06-14 09:29] LABS: ANION GAP 14 (5-13); BLOOD UREA NITROGEN 8 mg/dl (7-20); CALCIUM 8.7 mg/dl (8.4-10.2); CARBON DIOXIDE 27 mmol/L (21-31); CHLORIDE 100 mmol/L (97-110); CREATININE 0.49 mg/dl (0.44-1.00); Estimated GFR > 60 mL/min (>60); GLUCOSE 149 mg/dl (70-220); POTASSIUM 3.6 mmol/L (3.5-5.1); SODIUM 141 mmol/L (135-144)
[2018-06-14 16:59] LABS: ADD UMIC NO; UR ASCORBIC ACID NEGATIVE (NEGATIVE); UR BILIRUBIN (Dip) NEGATIVE (NEGATIVE); UR BLOOD (Dip) NEGATIVE (NEGATIVE); UR CLARITY CLEAR (CLEAR); UR COLOR STRAW (YELLOW); UR GLUCOSE (Dip) NEGATIVE (NEGATIVE); UR KETONES (Dip) NEGATIVE (NEGATIVE); UR LEUKOCYTE ESTERASE (Dip) NEGATIVE Leu/ul (NEGATIVE); UR NITRITE (Dip) NEGATIVE (NEGATIVE); UR SPECIFIC GRAVITY (Dip) 1.004 (1.003-1.030); UR TOTAL PROTEIN (Dip) NEGATIVE (NEGATIVE); UR UROBILINOGEN (Dip) NEGATIVE (NEGATIVE)
[2018-06-14] MEDS: NITROFURANTOIN (SR) 100 MG CAP PO ×2 (17:49→20:47)
[2018-06-15] MEDS: HYDROmorphONE 2 MG/ML SYG IV ×8 (00:06→23:04)
[2018-06-15] MEDS: DIPHENHYDRAMINE 50 MG INJ IV ×4 (00:07→19:53)
[2018-06-15] MEDS: ZOLPIDEM 5 MG TAB PO ×2 (02:10→21:05)
[2018-06-15 06:06] LABS: ADD MAN DIFF? NO
[2018-06-15 06:11] LABS: BASOPHILS % 0.9 % (0.0-2.0); EOSINOPHILS # 0.2 10^3/ul (0.0-0.5); EOSINOPHILS % 4.1 % (0.0-7.0); HEMATOCRIT 29.3 % (37.0-47.0); HEMOGLOBIN 9.1 g/dl (12.0-16.0); LYMPHOCYTES # 1.3 10^3/ul (0.8-2.9); LYMPHOCYTES % 29.3 % (15.0-51.0); MEAN CORPUSCULAR HGB CONC 31.1 g/dl (32.0-37.0); MEAN CORPUSCULAR VOLUME 74.2 fl (82.0-101.0); MEAN PLATELET VOLUME 10.6 fl (7.4-10.4); MONOCYTE # 0.5 10^3/ul (0.3-0.9); MONOCYTES % 10.5 % (0.0-11.0); NEUTROPHIL # 2.4 10^3/ul (1.6-7.5); NEUTROPHILS % 54.3 % (39.0-77.0); PLATELET COUNT 259 10^3/UL (140-415); RED BLOOD COUNT 3.95 10^6/ul (4.20-5.40); RED CELL DISTRIBUTION WIDTH 15.8 % (11.5-14.5)
[2018-06-15 06:11] LABS: WHITE BLOOD COUNT 4.4 10^3/ul (4.8-10.8)
[2018-06-15] MEDS: LEVOTHYROXINE 50 MCG TAB PO (06:33)
[2018-06-15 06:42] LABS: INR 0.95; PROTIME 12.8 Sec (11.9-14.9)
[2018-06-15] MEDS: PANTOPRAZOLE 40 MG INJ IV ×2 (06:50→17:56)
[2018-06-15 06:52] LABS: MAGNESIUM 1.8 mg/dl (1.7-2.5)
[2018-06-15 07:02] LABS: ANION GAP 14 (5-13); BLOOD UREA NITROGEN 13 mg/dl (7-20); CALCIUM 9.2 mg/dl (8.4-10.2); CARBON DIOXIDE 29 mmol/L (21-31); CHLORIDE 100 mmol/L (97-110); CREATININE 0.54 mg/dl (0.44-1.00); Estimated GFR > 60 mL/min (>60); GLUCOSE 86 mg/dl (70-220); SODIUM 143 mmol/L (135-144)
[2018-06-15] MEDS: CHOLECALCIFEROL 2,000 UNIT CAP PO (08:35)
[2018-06-15] MEDS: NITROFURANTOIN (SR) 100 MG CAP PO ×2 (08:35→21:05)
[2018-06-15] MEDS: DULOXETINE 30 MG CAP DR PO (08:35)
[2018-06-15] MEDS: ZINC SULFATE 220 MG CAP PO (08:35)
[2018-06-15] MEDS: METHYLNALTREXONE 12 MG/0.6 ML VIAL SC (08:36)
[2018-06-15] MEDS: CEPASTAT LOZENGE MT ×2 (08:42→10:22)
[2018-06-15] MEDS: LORAZEPAM 2 MG INJ IV (16:09)
[2018-06-16] MEDS: DIPHENHYDRAMINE 50 MG INJ IV ×3 (02:25→21:31)
[2018-06-16] MEDS: HYDROmorphONE 2 MG/ML SYG IV ×6 (02:25→21:32)
[2018-06-16] MEDS: PANTOPRAZOLE 40 MG INJ IV ×2 (05:54→17:18)
[2018-06-16] MEDS ORDERED: DESFLURANE 15 MIN (07:00)
[2018-06-16] MEDS: LEVOTHYROXINE 50 MCG TAB PO (07:00)
[2018-06-16] MEDS: NITROFURANTOIN (SR) 100 MG CAP PO (09:00)
[2018-06-16] MEDS: ZINC SULFATE 220 MG CAP PO (09:00)
[2018-06-16] MEDS: DULOXETINE 30 MG CAP DR PO (09:00)
[2018-06-16] MEDS: CHOLECALCIFEROL 2,000 UNIT CAP PO (09:00)
[2018-06-16] MEDS ORDERED: HYDROmorphONE 1 MG/5 ML IV SYRINGE IV ×2 (11:00)
[2018-06-16] MEDS ORDERED: FENTAnyl 50 MCG/ML VIAL IV ×2 (11:00)
[2018-06-16] MEDS ORDERED: LIDOCAINE 2% (MDV) 20 ML INJ (11:00)
[2018-06-16] MEDS ORDERED: MEPERIDINE 25 MG INJ IV (11:00)
[2018-06-16] MEDS ORDERED: ALBUTEROL 0.083% (NEB) 2.5 MG/3 ML AMP HHN (11:00)
[2018-06-16] MEDS ORDERED: TRIMETHOBENZAMIDE 100 MG/ML VIAL IM (11:00)
[2018-06-16] MEDS ORDERED: IPRATROPIUM (NEB) 0.5 MG/2.5 ML AMP HHN (11:00)
[2018-06-16] MEDS ORDERED: hydrALAzine 20 MG INJ IV (11:00)
[2018-06-16] MEDS ORDERED: DIPHENHYDRAMINE 50 MG INJ IV (11:00)
[2018-06-16] MEDS ORDERED: EPHEDrine SULFATE 50 MG/5 ML SYG IV (11:00)
[2018-06-16] MEDS ORDERED: ONDANSETRON 4 MG INJ IV (11:00)
[2018-06-16] MEDS ORDERED: LABETALOL HCL 20MG INJ IV (11:00)
[2018-06-16] MEDS ORDERED: GLYCOPYRROLATE 0.4 MG INJ (11:18)
[2018-06-16] MEDS ORDERED: ROCURONIUM 50 MG INJ (11:18)
[2018-06-16] MEDS ORDERED: NEOSTIGMINE 3 MG/3 ML SYRINGE (11:18)
[2018-06-16] MEDS ORDERED: PROPOFOL 20 ML (11:18)
[2018-06-16] MEDS ORDERED: CEFAZOLIN 1 GM INJ (11:18)
[2018-06-16] MEDS ORDERED: MIDAZOLAM 1 MG/ML 2 ML INJ (11:19)
[2018-06-16] MEDS ORDERED: FENTAnyl 50 MCG/ML VIAL (11:19)
[2018-06-16] MEDS ORDERED: ONDANSETRON 4 MG INJ (11:19)
[2018-06-16] MEDS ORDERED: DEXAMETHASONE 4 MG/ML 5 ML INJ (11:19)
[2018-06-16] MEDS: FENTAnyl 50 MCG/ML VIAL IV (12:09)
[2018-06-16] MEDS: HYDROmorphONE 1 MG/5 ML IV SYRINGE IV (12:10)
[2018-06-16] MEDS: MIDAZOLAM 1 MG/ML 2 ML INJ IV (12:25)
[2018-06-16] MEDS: CEPASTAT LOZENGE MT (15:28)
[2018-06-16] MEDS: LORAZEPAM 2 MG INJ IV (16:40)
[2018-06-16] MEDS: ZOLPIDEM 5 MG TAB PO (23:08)
[2018-06-17] MEDS: HYDROmorphONE 2 MG/ML SYG IV ×8 (00:39→22:53)
[2018-06-17] MEDS: DIPHENHYDRAMINE 50 MG INJ IV ×4 (03:40→22:52)
[2018-06-17] MEDS: LORAZEPAM 2 MG INJ IV ×3 (05:19→11:49)
[2018-06-17] MEDS: LEVOTHYROXINE 50 MCG TAB PO (05:19)
[2018-06-17] MEDS: LEVOFLOXACIN 500 MG TAB NGT (05:20)
[2018-06-17] MEDS: DULOXETINE 30 MG CAP DR PO (08:17)
[2018-06-17] MEDS: CHOLECALCIFEROL 2,000 UNIT CAP PO (08:17)
[2018-06-17] MEDS: ZINC SULFATE 220 MG CAP PO (08:17)
[2018-06-17] MEDS: PANTOPRAZOLE (EC) 40 MG TAB PO ×2 (10:11→19:42)
[2018-06-17] MEDS: METHYLNALTREXONE 12 MG/0.6 ML VIAL SC (10:12)
[2018-06-17] MEDS: CEPASTAT LOZENGE MT ×2 (11:57→23:07)
[2018-06-17] MEDS: ZOLPIDEM 5 MG TAB PO (21:52)
[2018-06-18] MEDS: HYDROmorphONE 2 MG/ML SYG IV ×8 (02:00→23:33)
[2018-06-18] MEDS: CEPASTAT LOZENGE MT ×5 (02:01→23:34)
[2018-06-18] MEDS: LORAZEPAM 2 MG INJ IV ×2 (04:15→10:05)
[2018-06-18] MEDS: DIPHENHYDRAMINE 50 MG CAP PO (05:02)
[2018-06-18] MEDS: DIPHENHYDRAMINE 50 MG INJ IV ×4 (05:04→23:32)
[2018-06-18] MEDS: LEVOFLOXACIN 500 MG TAB NGT (06:15)
[2018-06-18] MEDS: DULOXETINE 30 MG CAP DR PO (08:06)
[2018-06-18] MEDS: PANTOPRAZOLE (EC) 40 MG TAB PO ×2 (08:06→20:27)
[2018-06-18] MEDS: ZINC SULFATE 220 MG CAP PO (08:06)
[2018-06-18] MEDS: CHOLECALCIFEROL 2,000 UNIT CAP PO (08:06)
[2018-06-18] MEDS: LEVOTHYROXINE 50 MCG TAB PO (08:06)
[2018-06-18] MEDS: ONDANSETRON 4 MG INJ IV (13:01)
[2018-06-18] MEDS: ZOLPIDEM 5 MG TAB PO (21:58)
[2018-06-18] MEDS: ALTEPLASE (CATHFLO) 2 MG INJ CATHETER (23:34)
[2018-06-19] MEDS: HYDROmorphONE 2 MG/ML SYG IV ×7 (03:18→21:19)
[2018-06-19] MEDS: DIPHENHYDRAMINE 50 MG INJ IV ×3 (06:17→18:19)
[2018-06-19] MEDS: LEVOFLOXACIN 500 MG TAB NGT (06:19)
[2018-06-19] MEDS: CEPASTAT LOZENGE MT ×5 (06:19→21:17)
[2018-06-19] MEDS: LEVOTHYROXINE 50 MCG TAB PO (06:20)
[2018-06-19] MEDS: PANTOPRAZOLE (EC) 40 MG TAB PO ×2 (09:20→21:17)
[2018-06-19] MEDS: DULOXETINE 30 MG CAP DR PO (09:20)
[2018-06-19] MEDS: CHOLECALCIFEROL 2,000 UNIT CAP PO (09:20)
[2018-06-19] MEDS: ZINC SULFATE 220 MG CAP PO (09:20)
[2018-06-19] MEDS: METHYLNALTREXONE 12 MG/0.6 ML VIAL SC (09:21)
[2018-06-19] MEDS: ONDANSETRON 4 MG INJ IV (13:06)
[2018-06-19] MEDS: LORAZEPAM 2 MG INJ IV (13:42)
[2018-06-19 15:08] LABS: RAPID PLASMA REAGIN NONREACTIVE (NR)
[2018-06-19] MEDS: ZOLPIDEM 5 MG TAB PO (22:03)
[2018-06-19] MEDS: VALACYCLOVIR 500 MG TAB PO (23:02)
[2018-06-20] MEDS: HYDROmorphONE 2 MG/ML SYG IV ×8 (00:19→21:29)
[2018-06-20] MEDS: DIPHENHYDRAMINE 50 MG INJ IV ×4 (00:19→18:31)
[2018-06-20] MEDS: CEPASTAT LOZENGE MT ×2 (00:19→06:18)
[2018-06-20] MEDS: LORAZEPAM 2 MG INJ IV ×2 (04:41→17:23)
[2018-06-20] MEDS: LEVOTHYROXINE 50 MCG TAB PO (06:18)
[2018-06-20] MEDS: PANTOPRAZOLE (EC) 40 MG TAB PO ×2 (08:25→20:30)
[2018-06-20] MEDS: DULOXETINE 30 MG CAP DR PO (08:25)
[2018-06-20] MEDS: VALACYCLOVIR 500 MG TAB PO ×2 (08:25→20:30)
[2018-06-20] MEDS: CHOLECALCIFEROL 2,000 UNIT CAP PO (08:25)
[2018-06-20] MEDS: ZINC SULFATE 220 MG CAP PO (08:25)
[2018-06-20] MEDS: ZOLPIDEM 5 MG TAB PO (20:30)
[2018-06-21] MEDS: HYDROmorphONE 2 MG/ML SYG IV ×8 (00:29→21:25)
[2018-06-21] MEDS: DIPHENHYDRAMINE 50 MG INJ IV ×4 (00:29→18:23)
[2018-06-21] MEDS: LORAZEPAM 2 MG INJ IV ×2 (01:27→13:52)
[2018-06-21] MEDS: LEVOTHYROXINE 50 MCG TAB PO (06:35)
[2018-06-21] MEDS: CEPASTAT LOZENGE MT (06:35)
[2018-06-21 06:46] LABS: ADD MAN DIFF? NO
[2018-06-21 06:51] LABS: BASOPHILS % 0.6 % (0.0-2.0); EOSINOPHILS # 0.2 10^3/ul (0.0-0.5); EOSINOPHILS % 2.8 % (0.0-7.0); HEMOGLOBIN 8.8 g/dl (12.0-16.0); LYMPHOCYTES # 1.1 10^3/ul (0.8-2.9); LYMPHOCYTES % 20.9 % (15.0-51.0); MEAN CORPUSCULAR HEMOGLOBIN 22.7 pg (29.0-33.0); MEAN CORPUSCULAR HGB CONC 31.4 g/dl (32.0-37.0); MEAN CORPUSCULAR VOLUME 72.4 fl (82.0-101.0); MEAN PLATELET VOLUME 9.8 fl (7.4-10.4); MONOCYTE # 0.4 10^3/ul (0.3-0.9); MONOCYTES % 8.1 % (0.0-11.0); NEUTROPHIL # 3.6 10^3/ul (1.6-7.5); PLATELET COUNT 212 10^3/UL (140-415); RED BLOOD COUNT 3.87 10^6/ul (4.20-5.40)
[2018-06-21 06:51] LABS: WHITE BLOOD COUNT 5.3 10^3/ul (4.8-10.8)
[2018-06-21 07:28] LABS: ANION GAP 6 (5-13); BLOOD UREA NITROGEN 13 mg/dl (7-20); CALCIUM 9.1 mg/dl (8.4-10.2); CARBON DIOXIDE 29 mmol/L (21-31); CHLORIDE 104 mmol/L (97-110); CREATININE 0.45 mg/dl (0.44-1.00); Estimated GFR > 60 mL/min (>60); GLUCOSE 100 mg/dl (70-220); POTASSIUM 3.7 mmol/L (3.5-5.1); SODIUM 139 mmol/L (135-144)
[2018-06-21] MEDS: CHOLECALCIFEROL 2,000 UNIT CAP PO (08:36)
[2018-06-21] MEDS: VALACYCLOVIR 500 MG TAB PO ×2 (08:36→21:06)
[2018-06-21] MEDS: DULOXETINE 30 MG CAP DR PO (08:36)
[2018-06-21] MEDS: ZINC SULFATE 220 MG CAP PO (08:36)
[2018-06-21] MEDS: PANTOPRAZOLE (EC) 40 MG TAB PO ×2 (08:37→21:06)
[2018-06-21] MEDS: METHYLNALTREXONE 12 MG/0.6 ML VIAL SC (08:42)
[2018-06-21] MEDS: ONDANSETRON 4 MG INJ IV (09:30)
[2018-06-21] MEDS: ZOLPIDEM 5 MG TAB PO (21:06)
[2018-06-22] MEDS: DIPHENHYDRAMINE 50 MG INJ IV ×4 (00:25→18:28)
[2018-06-22] MEDS: HYDROmorphONE 2 MG/ML SYG IV ×7 (00:26→21:43)
[2018-06-22 05:38] LABS: ADD MAN DIFF? NO
[2018-06-22 05:49] LABS: BASOPHILS % 0.6 % (0.0-2.0); EOSINOPHILS # 0.1 10^3/ul (0.0-0.5); EOSINOPHILS % 2.3 % (0.0-7.0); HEMATOCRIT 24.4 % (37.0-47.0); HEMOGLOBIN 7.6 g/dl (12.0-16.0); LYMPHOCYTES # 0.8 10^3/ul (0.8-2.9); LYMPHOCYTES % 23.4 % (15.0-51.0); MEAN CORPUSCULAR HEMOGLOBIN 22.8 pg (29.0-33.0); MEAN CORPUSCULAR HGB CONC 31.1 g/dl (32.0-37.0); MEAN CORPUSCULAR VOLUME 73.3 fl (82.0-101.0); MEAN PLATELET VOLUME 9.9 fl (7.4-10.4); MONOCYTE # 0.4 10^3/ul (0.3-0.9); MONOCYTES % 10.8 % (0.0-11.0); NEUTROPHIL # 2.1 10^3/ul (1.6-7.5); NEUTROPHILS % 62.3 % (39.0-77.0); PLATELET COUNT 183 10^3/UL (140-415); RED BLOOD COUNT 3.33 10^6/ul (4.20-5.40); RED CELL DISTRIBUTION WIDTH 15.8 % (11.5-14.5)
[2018-06-22 05:49] LABS: WHITE BLOOD COUNT 3.4 10^3/ul (4.8-10.8)
[2018-06-22 06:08] LABS: MAGNESIUM 1.9 mg/dl (1.7-2.5)
[2018-06-22 06:08] LABS: PHOSPHORUS 4.6 mg/dl (2.5-4.9)
[2018-06-22 06:12] LABS: ALANINE AMINOTRANSFERASE 31 IU/L (13-69); ALBUMIN 3.5 g/dl (3.3-4.9); ALBUMIN/GLOBULIN RATIO 1.29; ALKALINE PHOSPHATASE 75 IU/L (42-121); ANION GAP 9 (5-13); ASPARTATE AMINO TRANSFERASE 29 IU/L (15-46); BILIRUBIN,INDIRECT 0.3 mg/dl (0-1.1); BILIRUBIN,TOTAL 0.3 mg/dl (0.2-1.3); BLOOD UREA NITROGEN 17 mg/dl (7-20); CALCIUM 8.7 mg/dl (8.4-10.2); CARBON DIOXIDE 28 mmol/L (21-31); CHLORIDE 102 mmol/L (97-110); CREATININE 0.56 mg/dl (0.44-1.00); Estimated GFR > 60 mL/min (>60); GLUCOSE 105 mg/dl (70-220); INR 0.97; POTASSIUM 3.2 mmol/L (3.5-5.1); SODIUM 139 mmol/L (135-144); TOTAL PROTEIN 6.2 g/dl (6.1-8.1)
[2018-06-22] MEDS: LEVOTHYROXINE 50 MCG TAB PO (06:32)
[2018-06-22] MEDS: CEPASTAT LOZENGE MT (06:39)
[2018-06-22] MEDS: DULOXETINE 30 MG CAP DR PO (08:28)
[2018-06-22] MEDS: ZINC SULFATE 220 MG CAP PO (08:28)
[2018-06-22] MEDS: VALACYCLOVIR 500 MG TAB PO ×2 (08:29→20:32)
[2018-06-22] MEDS: PANTOPRAZOLE (EC) 40 MG TAB PO ×2 (08:29→20:32)
[2018-06-22] MEDS: CHOLECALCIFEROL 2,000 UNIT CAP PO (08:29)
[2018-06-22] MEDS: POTASSIUM CHLORIDE (SR) 20 MEQ TAB PO (09:27)
[2018-06-22] MEDS: LORAZEPAM 2 MG INJ IV ×2 (10:03→16:02)
[2018-06-22] MEDS: ZOLPIDEM 5 MG TAB PO (20:32)
[2018-06-23] MEDS: DIPHENHYDRAMINE 50 MG INJ IV ×4 (00:26→20:07)
[2018-06-23] MEDS: HYDROmorphONE 2 MG/ML SYG IV ×8 (00:33→23:09)
[2018-06-23] MEDS: CEPASTAT LOZENGE MT ×3 (00:36→23:09)
[2018-06-23] MEDS: LEVOTHYROXINE 50 MCG TAB PO (06:27)
[2018-06-23 07:22] LABS: ABNORMAL IP MESSAGE 1; HEMATOCRIT 21.4 % (37.0-47.0); MEAN CORPUSCULAR HEMOGLOBIN 22.4 pg (29.0-33.0); MEAN CORPUSCULAR HGB CONC 30.8 g/dl (32.0-37.0); MEAN CORPUSCULAR VOLUME 72.5 fl (82.0-101.0); PLATELET COUNT 182 10^3/UL (140-415); RED BLOOD COUNT 2.95 10^6/ul (4.20-5.40)
[2018-06-23 07:22] LABS: WHITE BLOOD COUNT 3.5 10^3/ul (4.8-10.8)
[2018-06-23 07:26] LABS: POSITIVE DIFF @See below
[2018-06-23 07:28] LABS: ADD MAN DIFF? YES; HEMOGLOBIN 6.6 g/dl (12.0-16.0)
[2018-06-23 07:37] LABS: MAGNESIUM 1.7 mg/dl (1.7-2.5)
[2018-06-23 07:37] LABS: PHOSPHORUS 3.7 mg/dl (2.5-4.9)
[2018-06-23 07:41] LABS: ANION GAP 3 (5-13); BLOOD UREA NITROGEN 14 mg/dl (7-20); CALCIUM 7.9 mg/dl (8.4-10.2); CARBON DIOXIDE 27 mmol/L (21-31); CHLORIDE 111 mmol/L (97-110); CREATININE 0.39 mg/dl (0.44-1.00); Estimated GFR > 60 mL/min (>60); GLUCOSE 76 mg/dl (70-220); SODIUM 141 mmol/L (135-144)
[2018-06-23] MEDS ORDERED: POTASSIUM CHLORIDE 50 ML IVPB (08:00)
[2018-06-23] MEDS: LORAZEPAM 2 MG INJ IV ×2 (08:25→14:28)
[2018-06-23] MEDS: DEXTROSE 5% 1,000 ML IV (08:28)
[2018-06-23] MEDS: VALACYCLOVIR 500 MG TAB PO ×2 (08:28→20:08)
[2018-06-23] MEDS: DULOXETINE 30 MG CAP DR PO (08:28)
[2018-06-23] MEDS: ZINC SULFATE 220 MG CAP PO (08:28)
[2018-06-23] MEDS: PANTOPRAZOLE (EC) 40 MG TAB PO ×2 (08:29→20:08)
[2018-06-23] MEDS: CHOLECALCIFEROL 2,000 UNIT CAP PO (08:29)
[2018-06-23 09:00] LABS: HEMATOCRIT 22.7 % (37.0-47.0); HEMOGLOBIN 7.1 g/dl (12.0-16.0)
[2018-06-23 09:27] LABS: ANISOCYTOSIS 3+ (0-0); BAND NEUTROPHILS #M 0.2 10^3/ul (0.0-0.6); BAND NEUTROPHILS % (M) 8 % (0-4); BASOPHILS % (M) 1 % (0-2); ELLIPTO 1+ (0-0); EOSINOPHILS % (M) 1 % (0-7); HYPOCHROMASIA 1+ (0-0); LYMPHOCYTES #M 0.5 10^3/ul (0.8-2.9); LYMPHOCYTES % (M) 16 % (15-51); MICROCYTOSIS 2+ (0-0); MONOCYTE #M 0.1 10^3/ul (0.3-0.9); MONOCYTES % (M) 3 % (0-11); OVALOCYTES 1+ (0-0); PLATELET ESTIMATE NORMAL; POIKILOCYTOSIS 3+ (0-0); POLYCHROMASIA 2+ (0-0); SEG NEUT #M 2.5 10^3/ul (1.6-7.5); SEGMENTED NEUTROPHILS (M) % 71 % (39-77); SMUDGE%M 5 % (0-0)
[2018-06-23] MEDS: METHYLNALTREXONE 12 MG/0.6 ML VIAL SC (09:31)
[2018-06-23] MEDS: MAGNESIUM SULFATE 2 GM/50 ML 50 ML IVPB (09:43)
[2018-06-23] MEDS: POTASSIUM CHLORIDE 20 MEQ/SW 100 ML IVPB ×2 (11:46→13:52)
[2018-06-23 17:47] LABS: IMMEDIATE SPIN CROSSMATCH 1 6
[2018-06-23] MEDS: ZOLPIDEM 5 MG TAB PO (21:23)
[2018-06-24] MEDS: LORAZEPAM 2 MG INJ IV ×3 (00:49→18:15)
[2018-06-24] MEDS: CEPASTAT LOZENGE MT ×3 (00:59→16:32)
[2018-06-24] MEDS: HYDROmorphONE 2 MG/ML SYG IV ×8 (02:07→23:49)
[2018-06-24] MEDS: DIPHENHYDRAMINE 50 MG INJ IV ×4 (02:07→20:23)
[2018-06-24] MEDS: DEXTROSE 5% 1,000 ML IV ×2 (03:19→19:50)
[2018-06-24 06:11] LABS: HERPES SIMPLEX 1 DNA NOT DETECTED; HERPES SIMPLEX 2 DNA NOT DETECTED; HERPES SIMPLEX PCR SOURCE TONGUE
[2018-06-24] MEDS: LEVOTHYROXINE 50 MCG TAB PO (06:26)
[2018-06-24 06:54] LABS: ADD MAN DIFF? NO
[2018-06-24 06:59] LABS: WHITE BLOOD COUNT 3.4 10^3/ul (4.8-10.8)
[2018-06-24 06:59] LABS: BASOPHILS % 0.6 % (0.0-2.0); EOSINOPHILS # 0.1 10^3/ul (0.0-0.5); HEMATOCRIT 28.2 % (37.0-47.0); LYMPHOCYTES # 0.8 10^3/ul (0.8-2.9); LYMPHOCYTES % 24.4 % (15.0-51.0); MEAN CORPUSCULAR HEMOGLOBIN 24.8 pg (29.0-33.0); MEAN CORPUSCULAR HGB CONC 31.9 g/dl (32.0-37.0); MEAN CORPUSCULAR VOLUME 77.7 fl (82.0-101.0); MEAN PLATELET VOLUME 10.4 fl (7.4-10.4); MONOCYTE # 0.5 10^3/ul (0.3-0.9); MONOCYTES % 15.1 % (0.0-11.0); NEUTROPHILS % 57.6 % (39.0-77.0); PLATELET COUNT 162 10^3/UL (140-415); RED BLOOD COUNT 3.63 10^6/ul (4.20-5.40); RED CELL DISTRIBUTION WIDTH 18.8 % (11.5-14.5)
[2018-06-24 07:20] LABS: PHOSPHORUS 4.5 mg/dl (2.5-4.9)
[2018-06-24 07:20] LABS: MAGNESIUM 2.1 mg/dl (1.7-2.5)
[2018-06-24 07:27] LABS: ANION GAP 7 (5-13); BLOOD UREA NITROGEN 9 mg/dl (7-20); CALCIUM 8.7 mg/dl (8.4-10.2); CARBON DIOXIDE 28 mmol/L (21-31); CHLORIDE 105 mmol/L (97-110); CREATININE 0.43 mg/dl (0.44-1.00); Estimated GFR > 60 mL/min (>60); GLUCOSE 89 mg/dl (70-220); POTASSIUM 3.6 mmol/L (3.5-5.1); SODIUM 140 mmol/L (135-144)
[2018-06-24] MEDS: ZINC SULFATE 220 MG CAP PO (08:09)
[2018-06-24] MEDS: CHOLECALCIFEROL 2,000 UNIT CAP PO (08:09)
[2018-06-24] MEDS: PANTOPRAZOLE (EC) 40 MG TAB PO ×2 (08:09→20:23)
[2018-06-24] MEDS: DULOXETINE 30 MG CAP DR PO (08:09)
[2018-06-24] MEDS: VALACYCLOVIR 500 MG TAB PO (08:10)
[2018-06-24 17:29] LABS: LACTIC ACID 1.1 mmol/L (0.5-2.0)
[2018-06-24 20:57] LABS: NIL 0.52 IU/mL; QUANTIFERON(R)-TB GOLD NEGATIVE (NEGATIVE); TB-NIL 0.07 IU/mL; TB2-NIL 0.05 IU/mL
[2018-06-24] MEDS: ZOLPIDEM 5 MG TAB PO (21:30)
[2018-06-25] MEDS: LORAZEPAM 2 MG INJ IV ×3 (01:12→21:22)
[2018-06-25] MEDS: DIPHENHYDRAMINE 50 MG INJ IV ×4 (02:18→20:10)
[2018-06-25] MEDS: HYDROmorphONE 2 MG/ML SYG IV ×8 (02:19→23:09)
[2018-06-25 06:19] LABS: ADD MAN DIFF? NO
[2018-06-25 06:24] LABS: WHITE BLOOD COUNT 4.5 10^3/ul (4.8-10.8)
[2018-06-25 06:24] LABS: BASOPHILS % 0.7 % (0.0-2.0); EOSINOPHILS # 0.1 10^3/ul (0.0-0.5); HEMATOCRIT 28.4 % (37.0-47.0); HEMOGLOBIN 9.2 g/dl (12.0-16.0); LYMPHOCYTES # 0.6 10^3/ul (0.8-2.9); LYMPHOCYTES % 13.9 % (15.0-51.0); MEAN CORPUSCULAR HGB CONC 32.4 g/dl (32.0-37.0); MEAN CORPUSCULAR VOLUME 77.2 fl (82.0-101.0); MEAN PLATELET VOLUME 10.3 fl (7.4-10.4); MONOCYTE # 0.4 10^3/ul (0.3-0.9); MONOCYTES % 9.5 % (0.0-11.0); NEUTROPHIL # 3.3 10^3/ul (1.6-7.5); NEUTROPHILS % 73.5 % (39.0-77.0); PLATELET COUNT 167 10^3/UL (140-415); RED BLOOD COUNT 3.68 10^6/ul (4.20-5.40); RED CELL DISTRIBUTION WIDTH 18.7 % (11.5-14.5)
[2018-06-25 06:53] LABS: ANION GAP 9 (5-13); BLOOD UREA NITROGEN 10 mg/dl (7-20); CALCIUM 8.8 mg/dl (8.4-10.2); CARBON DIOXIDE 28 mmol/L (21-31); CHLORIDE 103 mmol/L (97-110); CREATININE 0.42 mg/dl (0.44-1.00); Estimated GFR > 60 mL/min (>60); GLUCOSE 130 mg/dl (70-220); SODIUM 140 mmol/L (135-144)
[2018-06-25 06:59] LABS: MAGNESIUM 1.9 mg/dl (1.7-2.5)
[2018-06-25] MEDS: LEVOTHYROXINE 50 MCG TAB PO (07:09)
[2018-06-25] MEDS: METHYLNALTREXONE 12 MG/0.6 ML VIAL SC (08:08)
[2018-06-25] MEDS: ZINC SULFATE 220 MG CAP PO (08:09)
[2018-06-25] MEDS: PANTOPRAZOLE (EC) 40 MG TAB PO ×2 (08:09→21:00)
[2018-06-25] MEDS: DULOXETINE 30 MG CAP DR PO (08:09)
[2018-06-25] MEDS: CHOLECALCIFEROL 2,000 UNIT CAP PO (08:09)
[2018-06-25] MEDS ORDERED: LIDOCAINE 2% VISC 15 ML CUP PO (10:30)
[2018-06-25] MEDS: POTASSIUM CHLORIDE 100 ML IVPB ×2 (12:41→14:00)
[2018-06-25] MEDS: DEXTROSE 5% 1,000 ML IV (12:44)
[2018-06-25] MEDS ORDERED: CEFAZOLIN 2 GM/50 ML (PMX) 50 ML IVPB (14:00)
[2018-06-25] MEDS: DAPTOMYCIN 325 MG in SOD CHLORIDE 0.9% 100 ML IVPB (17:38)
[2018-06-26] MEDS: ZOLPIDEM 5 MG TAB PO ×2 (00:07→23:12)
[2018-06-26] MEDS: DIPHENHYDRAMINE 50 MG INJ IV ×4 (02:06→20:49)
[2018-06-26] MEDS: HYDROmorphONE 2 MG/ML SYG IV ×8 (02:07→23:49)
[2018-06-26] MEDS: LORAZEPAM 2 MG INJ IV ×3 (03:19→21:51)
[2018-06-26 05:52] LABS: ADD MAN DIFF? NO
[2018-06-26 05:56] LABS: WHITE BLOOD COUNT 3.2 10^3/ul (4.8-10.8)
[2018-06-26 05:56] LABS: BASOPHILS % 0.6 % (0.0-2.0); EOSINOPHILS # 0.1 10^3/ul (0.0-0.5); HEMATOCRIT 27.2 % (37.0-47.0); HEMOGLOBIN 8.7 g/dl (12.0-16.0); LYMPHOCYTES # 1.2 10^3/ul (0.8-2.9); LYMPHOCYTES % 37.3 % (15.0-51.0); MEAN CORPUSCULAR HEMOGLOBIN 24.9 pg (29.0-33.0); MEAN CORPUSCULAR VOLUME 77.9 fl (82.0-101.0); MONOCYTE # 0.5 10^3/ul (0.3-0.9); MONOCYTES % 15.4 % (0.0-11.0); NEUTROPHIL # 1.4 10^3/ul (1.6-7.5); NEUTROPHILS % 42.1 % (39.0-77.0); PLATELET COUNT 185 10^3/UL (140-415); RED BLOOD COUNT 3.49 10^6/ul (4.20-5.40); RED CELL DISTRIBUTION WIDTH 19.1 % (11.5-14.5)
[2018-06-26 06:23] LABS: ANION GAP 6 (5-13); BLOOD UREA NITROGEN 10 mg/dl (7-20); CALCIUM 9.2 mg/dl (8.4-10.2); CARBON DIOXIDE 31 mmol/L (21-31); CHLORIDE 103 mmol/L (97-110); CREATININE 0.43 mg/dl (0.44-1.00); Estimated GFR > 60 mL/min (>60); GLUCOSE 90 mg/dl (70-220); POTASSIUM 3.8 mmol/L (3.5-5.1); SODIUM 140 mmol/L (135-144)
[2018-06-26] MEDS: CEPASTAT LOZENGE MT (06:31)
[2018-06-26] MEDS: LEVOTHYROXINE 50 MCG TAB PO (06:31)
[2018-06-26 06:58] LABS: MAGNESIUM 2.1 mg/dl (1.7-2.5)
[2018-06-26 06:58] LABS: PHOSPHORUS 4.9 mg/dl (2.5-4.9)
[2018-06-26 07:15] LABS: CREATINE KINASE < 20 IU/L (23-200)
[2018-06-26] MEDS: DULOXETINE 30 MG CAP DR PO (08:22)
[2018-06-26] MEDS: CHOLECALCIFEROL 2,000 UNIT CAP PO (08:23)
[2018-06-26] MEDS: PANTOPRAZOLE (EC) 40 MG TAB PO ×2 (08:23→21:35)
[2018-06-26] MEDS: ZINC SULFATE 220 MG CAP PO (08:23)
[2018-06-26] MEDS: SOD CHLORIDE 0.9% 250 ML IV* (08:23)
[2018-06-26] MEDS: MIDAZOLAM 1 MG/ML 2 ML INJ (08:24)
[2018-06-26] MEDS: ETOMIDATE 20 MG INJ (08:24)
[2018-06-26 10:52] LABS: MYELOPEROXIDASE ANTIBODY <1.0 AI; PROTEINASE-3 ANTIBODY <1.0 AI
[2018-06-26] MEDS: CEFEPIME 1GM/50 ML (PMX) 50 ML IVPB ×2 (11:14→21:35)
[2018-06-26 13:11] LABS: ANCA SCREEN NEGATIVE (NEGATIVE)
[2018-06-26] MEDS: DEXTROSE 5% 1,000 ML IV (16:21)
[2018-06-26] MEDS: DAPTOMYCIN 500 MG in SOD CHLORIDE 0.9% 100 ML IVPB (17:19)
[2018-06-27] MEDS: HYDROmorphONE 2 MG/ML SYG IV ×7 (02:49→21:03)
[2018-06-27] MEDS: DIPHENHYDRAMINE 50 MG INJ IV ×4 (02:50→21:02)
[2018-06-27] MEDS: LORAZEPAM 2 MG INJ IV ×2 (04:20→16:29)
[2018-06-27 06:26] LABS: ADD MAN DIFF? NO
[2018-06-27 06:32] LABS: WHITE BLOOD COUNT 3.9 10^3/ul (4.8-10.8)
[2018-06-27 06:32] LABS: BASOPHILS % 0.8 % (0.0-2.0); EOSINOPHILS # 0.1 10^3/ul (0.0-0.5); EOSINOPHILS % 3.6 % (0.0-7.0); HEMATOCRIT 29.7 % (37.0-47.0); HEMOGLOBIN 9.3 g/dl (12.0-16.0); LYMPHOCYTES # 1.4 10^3/ul (0.8-2.9); LYMPHOCYTES % 37.3 % (15.0-51.0); MEAN CORPUSCULAR HEMOGLOBIN 24.5 pg (29.0-33.0); MEAN CORPUSCULAR HGB CONC 31.3 g/dl (32.0-37.0); MEAN CORPUSCULAR VOLUME 78.2 fl (82.0-101.0); MEAN PLATELET VOLUME 11.6 fl (7.4-10.4); MONOCYTE # 0.5 10^3/ul (0.3-0.9); MONOCYTES % 13.5 % (0.0-11.0); NEUTROPHIL # 1.7 10^3/ul (1.6-7.5); NEUTROPHILS % 44.3 % (39.0-77.0); PLATELET COUNT 162 10^3/UL (140-415); RED CELL DISTRIBUTION WIDTH 18.7 % (11.5-14.5)
[2018-06-27 06:44] LABS: PHOSPHORUS 5.5 mg/dl (2.5-4.9)
[2018-06-27 06:44] LABS: MAGNESIUM 1.9 mg/dl (1.7-2.5)
[2018-06-27] MEDS: LEVOTHYROXINE 50 MCG TAB PO (06:47)
[2018-06-27 06:58] LABS: ANION GAP 11 (5-13); BLOOD UREA NITROGEN 13 mg/dl (7-20); CALCIUM 9.6 mg/dl (8.4-10.2); CARBON DIOXIDE 29 mmol/L (21-31); CHLORIDE 100 mmol/L (97-110); CREATININE 0.46 mg/dl (0.44-1.00); Estimated GFR > 60 mL/min (>60); GLUCOSE 104 mg/dl (70-220); POTASSIUM 3.9 mmol/L (3.5-5.1); SODIUM 140 mmol/L (135-144)
[2018-06-27] MEDS: CEFEPIME 1GM/50 ML (PMX) 50 ML IVPB ×2 (08:43→20:38)
[2018-06-27] MEDS: PANTOPRAZOLE (EC) 40 MG TAB PO ×2 (08:43→20:37)
[2018-06-27] MEDS: METHYLNALTREXONE 12 MG/0.6 ML VIAL SC (08:43)
[2018-06-27] MEDS: ZINC SULFATE 220 MG CAP PO (08:43)
[2018-06-27] MEDS: CHOLECALCIFEROL 2,000 UNIT CAP PO (08:43)
[2018-06-27] MEDS: DULOXETINE 30 MG CAP DR PO (08:43)
[2018-06-27] MEDS: DEXTROSE 5% 1,000 ML IV (13:08)
[2018-06-27] MEDS: DAPTOMYCIN 500 MG in SOD CHLORIDE 0.9% 100 ML IVPB (17:38)
[2018-06-27] MEDS: ZOLPIDEM 5 MG TAB PO (20:44)
[2018-06-28] MEDS: HYDROmorphONE 2 MG/ML SYG IV ×8 (00:48→23:11)
[2018-06-28] MEDS: LORAZEPAM 2 MG INJ IV ×3 (02:34→18:21)
[2018-06-28] MEDS: DIPHENHYDRAMINE 50 MG INJ IV ×4 (04:06→23:08)
[2018-06-28 06:14] LABS: ADD MAN DIFF? NO
[2018-06-28 06:20] LABS: WHITE BLOOD COUNT 3.5 10^3/ul (4.8-10.8)
[2018-06-28 06:20] LABS: BASOPHILS % 0.9 % (0.0-2.0); EOSINOPHILS # 0.2 10^3/ul (0.0-0.5); EOSINOPHILS % 4.3 % (0.0-7.0); HEMATOCRIT 27.5 % (37.0-47.0); HEMOGLOBIN 8.7 g/dl (12.0-16.0); LYMPHOCYTES # 1.3 10^3/ul (0.8-2.9); LYMPHOCYTES % 37.8 % (15.0-51.0); MEAN CORPUSCULAR HEMOGLOBIN 24.4 pg (29.0-33.0); MEAN CORPUSCULAR HGB CONC 31.6 g/dl (32.0-37.0); MEAN CORPUSCULAR VOLUME 77.2 fl (82.0-101.0); MONOCYTE # 0.4 10^3/ul (0.3-0.9); MONOCYTES % 12.2 % (0.0-11.0); NEUTROPHIL # 1.6 10^3/ul (1.6-7.5); NEUTROPHILS % 43.9 % (39.0-77.0); PLATELET COUNT 219 10^3/UL (140-415); RED BLOOD COUNT 3.56 10^6/ul (4.20-5.40); RED CELL DISTRIBUTION WIDTH 18.5 % (11.5-14.5)
[2018-06-28 06:38] LABS: MAGNESIUM 2.1 mg/dl (1.7-2.5)
[2018-06-28 06:38] LABS: PHOSPHORUS 4.8 mg/dl (2.5-4.9)
[2018-06-28] MEDS: LEVOTHYROXINE 50 MCG TAB PO (06:58)
[2018-06-28 08:20] LABS: ANION GAP 2 (5-13); BLOOD UREA NITROGEN 11 mg/dl (7-20); CARBON DIOXIDE 31 mmol/L (21-31); CHLORIDE 106 mmol/L (97-110); CREATININE 0.44 mg/dl (0.44-1.00); Estimated GFR > 60 mL/min (>60); GLUCOSE 89 mg/dl (70-220); POTASSIUM 3.8 mmol/L (3.5-5.1); SODIUM 139 mmol/L (135-144)
[2018-06-28] MEDS: ZINC SULFATE 220 MG CAP PO (08:37)
[2018-06-28] MEDS: DEXTROSE 5% 1,000 ML IV (08:37)
[2018-06-28] MEDS: CEFEPIME 1GM/50 ML (PMX) 50 ML IVPB (08:37)
[2018-06-28] MEDS: CHOLECALCIFEROL 2,000 UNIT CAP PO (08:37)
[2018-06-28] MEDS: DULOXETINE 30 MG CAP DR PO (08:37)
[2018-06-28] MEDS: PANTOPRAZOLE (EC) 40 MG TAB PO ×2 (08:37→21:08)
[2018-06-28] MEDS: LEVOFLOXACIN 500MG/D5W (PMX) 100 ML IVPB (17:03)
[2018-06-28] MEDS: DAPTOMYCIN 500 MG in SOD CHLORIDE 0.9% 100 ML IVPB (18:14)
[2018-06-28] MEDS: ZOLPIDEM 5 MG TAB PO (21:10)
[2018-06-29] MEDS: LORAZEPAM 2 MG INJ IV ×3 (00:50→20:20)
[2018-06-29] MEDS: HYDROmorphONE 2 MG/ML SYG IV ×7 (02:20→21:54)
[2018-06-29] MEDS: DEXTROSE 5% 1,000 ML IV (05:04)
[2018-06-29] MEDS: DIPHENHYDRAMINE 50 MG INJ IV ×3 (05:22→18:42)
[2018-06-29 05:46] LABS: ADD MAN DIFF? NO
[2018-06-29 05:53] LABS: WHITE BLOOD COUNT 4.4 10^3/ul (4.8-10.8)
[2018-06-29 05:53] LABS: BASOPHILS % 0.7 % (0.0-2.0); EOSINOPHILS # 0.1 10^3/ul (0.0-0.5); EOSINOPHILS % 3.2 % (0.0-7.0); HEMATOCRIT 24.9 % (37.0-47.0); HEMOGLOBIN 7.8 g/dl (12.0-16.0); LYMPHOCYTES # 1.2 10^3/ul (0.8-2.9); LYMPHOCYTES % 27.5 % (15.0-51.0); MEAN CORPUSCULAR HEMOGLOBIN 24.2 pg (29.0-33.0); MEAN CORPUSCULAR HGB CONC 31.3 g/dl (32.0-37.0); MEAN CORPUSCULAR VOLUME 77.3 fl (82.0-101.0); MEAN PLATELET VOLUME 10.7 fl (7.4-10.4); MONOCYTE # 0.4 10^3/ul (0.3-0.9); MONOCYTES % 9.7 % (0.0-11.0); NEUTROPHIL # 2.6 10^3/ul (1.6-7.5); NEUTROPHILS % 57.8 % (39.0-77.0); PLATELET COUNT 190 10^3/UL (140-415); RED BLOOD COUNT 3.22 10^6/ul (4.20-5.40); RED CELL DISTRIBUTION WIDTH 18.2 % (11.5-14.5)
[2018-06-29 06:01] LABS: POSITIVE DIFF @See below
[2018-06-29 06:24] LABS: MAGNESIUM 1.9 mg/dl (1.7-2.5)
[2018-06-29 06:24] LABS: PHOSPHORUS 4.7 mg/dl (2.5-4.9)
[2018-06-29 06:27] LABS: ANION GAP 8 (5-13); BLOOD UREA NITROGEN 12 mg/dl (7-20); CALCIUM 9.3 mg/dl (8.4-10.2); CARBON DIOXIDE 31 mmol/L (21-31); CHLORIDE 102 mmol/L (97-110); CREATININE 0.49 mg/dl (0.44-1.00); Estimated GFR > 60 mL/min (>60); GLUCOSE 109 mg/dl (70-220); POTASSIUM 3.5 mmol/L (3.5-5.1); SODIUM 141 mmol/L (135-144)
[2018-06-29] MEDS: LEVOTHYROXINE 50 MCG TAB PO (06:30)
[2018-06-29] MEDS: DULOXETINE 30 MG CAP DR PO (08:28)
[2018-06-29] MEDS: CHOLECALCIFEROL 2,000 UNIT CAP PO (08:28)
[2018-06-29] MEDS: ZINC SULFATE 220 MG CAP PO (08:29)
[2018-06-29] MEDS: PANTOPRAZOLE (EC) 40 MG TAB PO ×2 (08:29→20:20)
[2018-06-29] MEDS: ALTEPLASE (CATHFLO) 2 MG INJ CATHETER ×2 (11:26→11:28)
[2018-06-29] MEDS: METHYLNALTREXONE 12 MG/0.6 ML VIAL SC (12:27)
[2018-06-29] MEDS: LEVOFLOXACIN 500MG/D5W (PMX) 100 ML IVPB (15:40)
[2018-06-29] MEDS: CEPASTAT LOZENGE MT (15:40)
[2018-06-29] MEDS: DAPTOMYCIN 500 MG in SOD CHLORIDE 0.9% 100 ML IVPB (17:33)
[2018-06-29] MEDS: ZOLPIDEM 5 MG TAB PO (22:55)
[2018-06-30] MEDS: HYDROmorphONE 2 MG/ML SYG IV ×4 (00:53→10:34)
[2018-06-30] MEDS: DIPHENHYDRAMINE 50 MG INJ IV ×3 (00:53→13:36)
[2018-06-30] MEDS: LEVOTHYROXINE 50 MCG TAB PO (05:50)
[2018-06-30 06:26] LABS: ADD MAN DIFF? NO
[2018-06-30 06:31] LABS: WHITE BLOOD COUNT 5.1 10^3/ul (4.8-10.8)
[2018-06-30 06:31] LABS: BASOPHILS % 0.6 % (0.0-2.0); EOSINOPHILS # 0.2 10^3/ul (0.0-0.5); EOSINOPHILS % 3.2 % (0.0-7.0); HEMATOCRIT 25.9 % (37.0-47.0); HEMOGLOBIN 8.2 g/dl (12.0-16.0); LYMPHOCYTES # 1.4 10^3/ul (0.8-2.9); LYMPHOCYTES % 26.9 % (15.0-51.0); MEAN CORPUSCULAR HEMOGLOBIN 24.6 pg (29.0-33.0); MEAN CORPUSCULAR HGB CONC 31.7 g/dl (32.0-37.0); MEAN CORPUSCULAR VOLUME 77.8 fl (82.0-101.0); MEAN PLATELET VOLUME 10.3 fl (7.4-10.4); MONOCYTE # 0.4 10^3/ul (0.3-0.9); MONOCYTES % 8.7 % (0.0-11.0); NEUTROPHILS % 59.6 % (39.0-77.0); PLATELET COUNT 225 10^3/UL (140-415); RED BLOOD COUNT 3.33 10^6/ul (4.20-5.40); RED CELL DISTRIBUTION WIDTH 17.8 % (11.5-14.5)
[2018-06-30 07:00] LABS: ALANINE AMINOTRANSFERASE 25 IU/L (13-69); ALBUMIN 3.5 g/dl (3.3-4.9); ALBUMIN/GLOBULIN RATIO 1.16; ALKALINE PHOSPHATASE 88 IU/L (42-121); ANION GAP 4 (5-13); ASPARTATE AMINO TRANSFERASE 20 IU/L (15-46); BILIRUBIN,INDIRECT 0.3 mg/dl (0-1.1); BILIRUBIN,TOTAL 0.3 mg/dl (0.2-1.3); BLOOD UREA NITROGEN 16 mg/dl (7-20); CALCIUM 9.1 mg/dl (8.4-10.2); CARBON DIOXIDE 30 mmol/L (21-31); CHLORIDE 107 mmol/L (97-110); CREATININE 0.57 mg/dl (0.44-1.00); Estimated GFR > 60 mL/min (>60); GLUCOSE 106 mg/dl (70-220); POTASSIUM 3.8 mmol/L (3.5-5.1); SODIUM 141 mmol/L (135-144); TOTAL PROTEIN 6.5 g/dl (6.1-8.1)
[2018-06-30] MEDS: DULOXETINE 30 MG CAP DR PO (08:42)
[2018-06-30] MEDS: ZINC SULFATE 220 MG CAP PO (08:42)
[2018-06-30] MEDS: CHOLECALCIFEROL 2,000 UNIT CAP PO (08:42)
[2018-06-30] MEDS: CEPASTAT LOZENGE MT (08:42)
[2018-06-30] MEDS: PANTOPRAZOLE (EC) 40 MG TAB PO ×2 (08:42→21:45)
[2018-06-30] MEDS: traMADol 50 MG TAB PO (13:36)
[2018-06-30] MEDS: LORAZEPAM 2 MG INJ IV ×2 (14:43→22:59)
[2018-06-30] MEDS: DAPTOMYCIN 500 MG in SOD CHLORIDE 0.9% 100 ML IVPB (16:00)
[2018-06-30] MEDS: LEVOFLOXACIN 500MG/D5W (PMX) 100 ML IVPB (17:32)
[2018-06-30] MEDS: ZOLPIDEM 5 MG TAB PO (21:45)
[2018-07-01] MEDS: traMADol 50 MG TAB PO ×4 (02:01→20:06)
[2018-07-01] MEDS: LORAZEPAM 2 MG INJ IV ×3 (05:09→16:13)
[2018-07-01] MEDS: LEVOTHYROXINE 50 MCG TAB PO (06:08)
[2018-07-01] MEDS: DIPHENHYDRAMINE 50 MG INJ IV ×3 (08:05→20:05)
[2018-07-01] MEDS: DULOXETINE 30 MG CAP DR PO (08:43)
[2018-07-01] MEDS: PANTOPRAZOLE (EC) 40 MG TAB PO ×2 (08:43→20:58)
[2018-07-01] MEDS: ZINC SULFATE 220 MG CAP PO (08:43)
[2018-07-01] MEDS: CHOLECALCIFEROL 2,000 UNIT CAP PO (08:43)
[2018-07-01] MEDS ORDERED: IBUPROFEN 600 MG TAB PO ×2 (12:00→19:00)
[2018-07-01] MEDS: LACTOBACILLUS RHAMNOSUS CAP PO ×2 (13:25→21:30)
[2018-07-01] MEDS: GABAPENTIN 100 MG CAP PO ×2 (13:25→20:58)
[2018-07-01] MEDS: LORAZEPAM 1 MG TAB PO ×2 (13:25→20:58)
[2018-07-01] MEDS: traZODone 50 MG TAB PO ×2 (13:30→20:58)
[2018-07-01] MEDS: DAPTOMYCIN 500 MG in SOD CHLORIDE 0.9% 100 ML IVPB (16:06)
[2018-07-01] MEDS: LEVOFLOXACIN 500MG/D5W (PMX) 100 ML IVPB (16:56)
[2018-07-01] MEDS: ONDANSETRON 4 MG INJ IV (18:27)
[2018-07-01] MEDS: ZOLPIDEM 5 MG TAB PO (21:00)
[2018-07-02] MEDS: LORAZEPAM 2 MG INJ IV ×2 (04:55→12:13)
[2018-07-02] MEDS: LEVOTHYROXINE 50 MCG TAB PO (06:06)
[2018-07-02] MEDS: traMADol 50 MG TAB PO ×3 (06:08→16:27)
[2018-07-02] MEDS: DIPHENHYDRAMINE 50 MG INJ IV ×4 (06:11→23:09)
[2018-07-02] MEDS: CHOLECALCIFEROL 2,000 UNIT CAP PO (08:32)
[2018-07-02] MEDS: DULOXETINE 30 MG CAP DR PO (08:32)
[2018-07-02] MEDS: LORAZEPAM 1 MG TAB PO ×2 (08:33→21:16)
[2018-07-02] MEDS: traZODone 50 MG TAB PO ×2 (08:33→21:16)
[2018-07-02] MEDS: GABAPENTIN 100 MG CAP PO ×3 (08:33→21:16)
[2018-07-02] MEDS: PANTOPRAZOLE (EC) 40 MG TAB PO ×2 (08:33→21:16)
[2018-07-02] MEDS: LACTOBACILLUS RHAMNOSUS CAP PO ×2 (08:33→21:16)
[2018-07-02] MEDS: ZINC SULFATE 220 MG CAP PO (08:33)
[2018-07-02 15:51] LABS: ADD MAN DIFF? NO
[2018-07-02 15:54] LABS: WHITE BLOOD COUNT 7.8 10^3/ul (4.8-10.8)
[2018-07-02 15:54] LABS: BASOPHILS % 0.5 % (0.0-2.0); EOSINOPHILS # 0.1 10^3/ul (0.0-0.5); EOSINOPHILS % 1.5 % (0.0-7.0); HEMATOCRIT 30.4 % (37.0-47.0); HEMOGLOBIN 9.6 g/dl (12.0-16.0); LYMPHOCYTES # 2.5 10^3/ul (0.8-2.9); LYMPHOCYTES % 32.6 % (15.0-51.0); MEAN CORPUSCULAR HEMOGLOBIN 23.9 pg (29.0-33.0); MEAN CORPUSCULAR HGB CONC 31.6 g/dl (32.0-37.0); MEAN CORPUSCULAR VOLUME 75.6 fl (82.0-101.0); MEAN PLATELET VOLUME 10.3 fl (7.4-10.4); MONOCYTE # 0.7 10^3/ul (0.3-0.9); MONOCYTES % 8.6 % (0.0-11.0); NEUTROPHIL # 4.4 10^3/ul (1.6-7.5); NEUTROPHILS % 56.3 % (39.0-77.0); PLATELET COUNT 343 10^3/UL (140-415); RED BLOOD COUNT 4.02 10^6/ul (4.20-5.40); RED CELL DISTRIBUTION WIDTH 17.6 % (11.5-14.5)
[2018-07-02] MEDS: DAPTOMYCIN 500 MG in SOD CHLORIDE 0.9% 100 ML IVPB (16:46)
[2018-07-02] MEDS: HYDROmorphONE 1 MG/ML SYG IV (17:22)
[2018-07-02] MEDS: LEVOFLOXACIN 500MG/D5W (PMX) 100 ML IVPB (17:22)
[2018-07-02] MEDS: IOHEXOL 100 ML (18:04)
[2018-07-02] MEDS: SOD CHLORIDE 0.9% 100 ML (18:04)
[2018-07-02] MEDS: OXYMETAZOLINE 0.05% 15 ML NAS SPRAY NASAL (21:00)
[2018-07-02] MEDS: ZOLPIDEM 5 MG TAB PO (21:16)
[2018-07-02 22:46] LABS: HEMATOCRIT 29.4 % (37.0-47.0); HEMOGLOBIN 9.3 g/dl (12.0-16.0)
[2018-07-02 23:14] LABS: TROPONIN-I < 0.012 ng/ml (0.000-0.120)
[2018-07-02] MEDS: HYDROmorphONE 0.5 MG/0.5 ML SYG IV (23:15)
[2018-07-02] MEDS: PANTOPRAZOLE IV 80 MG in SOD CHLORIDE 0.9% 100 ML IV (23:57)
[2018-07-02] MEDS: SOD CHLORIDE 0.9% 1,000 ML IV (23:57)
[2018-07-03] MEDS: LORAZEPAM 2 MG INJ IV ×4 (02:49→18:35)
[2018-07-03] MEDS: ONDANSETRON 4 MG INJ IV ×2 (02:49→21:59)
[2018-07-03 04:56] LABS: ADD MAN DIFF? NO
[2018-07-03 04:58] LABS: WHITE BLOOD COUNT 4.9 10^3/ul (4.8-10.8)
[2018-07-03 04:58] LABS: BASOPHILS % 0.6 % (0.0-2.0); EOSINOPHILS # 0.2 10^3/ul (0.0-0.5); EOSINOPHILS % 3.1 % (0.0-7.0); HEMATOCRIT 24.7 % (37.0-47.0); HEMOGLOBIN 7.9 g/dl (12.0-16.0); LYMPHOCYTES # 1.6 10^3/ul (0.8-2.9); LYMPHOCYTES % 32.9 % (15.0-51.0); MEAN CORPUSCULAR HEMOGLOBIN 24.2 pg (29.0-33.0); MEAN CORPUSCULAR VOLUME 75.5 fl (82.0-101.0); MEAN PLATELET VOLUME 9.6 fl (7.4-10.4); MONOCYTE # 0.4 10^3/ul (0.3-0.9); MONOCYTES % 8.8 % (0.0-11.0); NEUTROPHIL # 2.6 10^3/ul (1.6-7.5); PLATELET COUNT 240 10^3/UL (140-415); RED BLOOD COUNT 3.27 10^6/ul (4.20-5.40); RED CELL DISTRIBUTION WIDTH 17.3 % (11.5-14.5)
[2018-07-03 05:18] LABS: INR 0.96; PROTIME 12.9 Sec (11.9-14.9)
[2018-07-03 05:26] LABS: CREATINE KINASE 39 IU/L (23-200)
[2018-07-03 05:31] LABS: ALANINE AMINOTRANSFERASE 28 IU/L (13-69); ALBUMIN 3.4 g/dl (3.3-4.9); ALBUMIN/GLOBULIN RATIO 1.36; ALKALINE PHOSPHATASE 75 IU/L (42-121); ANION GAP 8 (5-13); ASPARTATE AMINO TRANSFERASE 21 IU/L (15-46); BILIRUBIN,INDIRECT 0.4 mg/dl (0-1.1); BILIRUBIN,TOTAL 0.4 mg/dl (0.2-1.3); BLOOD UREA NITROGEN 14 mg/dl (7-20); CALCIUM 8.8 mg/dl (8.4-10.2); CARBON DIOXIDE 27 mmol/L (21-31); CHLORIDE 106 mmol/L (97-110); CREATININE 0.51 mg/dl (0.44-1.00); Estimated GFR > 60 mL/min (>60); GLUCOSE 84 mg/dl (70-220); POTASSIUM 3.1 mmol/L (3.5-5.1); SODIUM 141 mmol/L (135-144); TOTAL PROTEIN 5.9 g/dl (6.1-8.1)
[2018-07-03 05:34] LABS: TROPONIN-I < 0.012 ng/ml (0.000-0.120)
[2018-07-03] MEDS: LEVOTHYROXINE 50 MCG TAB PO (06:07)
[2018-07-03] MEDS: POTASSIUM CHLORIDE 100 ML IVPB ×3 (06:17→11:13)
[2018-07-03] MEDS: SOD CHLORIDE 0.9% 1,000 ML IV ×2 (08:30→21:45)
[2018-07-03] MEDS: ACETAMINOPHEN 1000MG/100ML IV 100 ML IVPB (08:48)
[2018-07-03] MEDS: PANTOPRAZOLE IV 80 MG in SOD CHLORIDE 0.9% 100 ML IV ×2 (08:48→18:02)
[2018-07-03] MEDS: DIPHENHYDRAMINE 50 MG INJ IV ×4 (08:48→22:04)
[2018-07-03] MEDS: OXYMETAZOLINE 0.05% 15 ML NAS SPRAY NASAL ×2 (08:49→20:29)
[2018-07-03] MEDS: LACTOBACILLUS RHAMNOSUS CAP PO ×2 (09:00→20:29)
[2018-07-03] MEDS: traZODone 50 MG TAB PO ×2 (09:00→20:29)
[2018-07-03] MEDS: CHOLECALCIFEROL 2,000 UNIT CAP PO (09:00)
[2018-07-03] MEDS: LORAZEPAM 1 MG TAB PO ×2 (09:00→21:00)
[2018-07-03] MEDS: ZINC SULFATE 220 MG CAP PO (09:00)
[2018-07-03] MEDS: DULOXETINE 30 MG CAP DR PO (09:00)
[2018-07-03] MEDS: GABAPENTIN 100 MG CAP PO ×3 (09:00→20:30)
[2018-07-03 10:50] LABS: AHG CROSSMATCH 1 2
[2018-07-03 11:51] LABS: TROPONIN-I < 0.012 ng/ml (0.000-0.120)
[2018-07-03 16:10] LABS: LIPASE 46 U/L (23-300)
[2018-07-03] MEDS: LIDOCAINE 2% (SDV) 5 ML INJ (16:11)
[2018-07-03] MEDS: PROPOFOL 20 ML ×2 (16:11→16:18)
[2018-07-03] MEDS ORDERED: ONDANSETRON 4 MG INJ IV (16:30)
[2018-07-03] MEDS: DAPTOMYCIN 500 MG in SOD CHLORIDE 0.9% 100 ML IVPB (17:03)
[2018-07-03] MEDS: LEVOFLOXACIN 500MG/D5W (PMX) 100 ML IVPB (17:17)
[2018-07-03] MEDS: traMADol 50 MG TAB PO (17:37)
[2018-07-03] MEDS: ZOLPIDEM 5 MG TAB PO (20:31)
[2018-07-03 22:02] LABS: HEMATOCRIT 31.4 % (37.0-47.0); HEMOGLOBIN 10.1 g/dl (12.0-16.0)
[2018-07-04] MEDS: LORAZEPAM 2 MG INJ IV ×3 (00:22→14:10)
[2018-07-04] MEDS: HYDROmorphONE 0.5 MG/0.5 ML SYG IV ×4 (01:57→19:59)
[2018-07-04] MEDS: DIPHENHYDRAMINE 50 MG INJ IV ×5 (01:58→19:59)
[2018-07-04 02:16] LABS: HEMATOCRIT 29.3 % (37.0-47.0); HEMOGLOBIN 9.6 g/dl (12.0-16.0)
[2018-07-04] MEDS: traMADol 50 MG TAB PO ×2 (03:51→10:25)
[2018-07-04] MEDS: PANTOPRAZOLE IV 80 MG in SOD CHLORIDE 0.9% 100 ML IV ×3 (04:30→21:03)
[2018-07-04 07:06] LABS: PROTEIN, TOTAL 5.5 g/dL (6.1-8.1)
[2018-07-04 07:07] LABS: ADD MAN DIFF? NO
[2018-07-04 07:17] LABS: WHITE BLOOD COUNT 6.4 10^3/ul (4.8-10.8)
[2018-07-04 07:17] LABS: BASOPHILS % 0.6 % (0.0-2.0); EOSINOPHILS # 0.2 10^3/ul (0.0-0.5); EOSINOPHILS % 2.5 % (0.0-7.0); HEMATOCRIT 30.9 % (37.0-47.0); HEMOGLOBIN 9.8 g/dl (12.0-16.0); LYMPHOCYTES # 1.2 10^3/ul (0.8-2.9); LYMPHOCYTES % 18.3 % (15.0-51.0); MEAN CORPUSCULAR HEMOGLOBIN 24.7 pg (29.0-33.0); MEAN CORPUSCULAR HGB CONC 31.7 g/dl (32.0-37.0); MEAN PLATELET VOLUME 10.1 fl (7.4-10.4); MONOCYTE # 0.5 10^3/ul (0.3-0.9); MONOCYTES % 7.6 % (0.0-11.0); NEUTROPHIL # 4.5 10^3/ul (1.6-7.5); NEUTROPHILS % 70.5 % (39.0-77.0); PLATELET COUNT 271 10^3/UL (140-415); RED BLOOD COUNT 3.96 10^6/ul (4.20-5.40); RED CELL DISTRIBUTION WIDTH 17.9 % (11.5-14.5)
[2018-07-04 08:18] LABS: ALANINE AMINOTRANSFERASE 24 IU/L (13-69); ALBUMIN 3.7 g/dl (3.3-4.9); ALBUMIN/GLOBULIN RATIO 1.48; ALKALINE PHOSPHATASE 84 IU/L (42-121); ANION GAP 8 (5-13); ASPARTATE AMINO TRANSFERASE 20 IU/L (15-46); BILIRUBIN,INDIRECT 0.5 mg/dl (0-1.1); BILIRUBIN,TOTAL 0.5 mg/dl (0.2-1.3); BLOOD UREA NITROGEN 10 mg/dl (7-20); CALCIUM 9.2 mg/dl (8.4-10.2); CARBON DIOXIDE 28 mmol/L (21-31); CHLORIDE 107 mmol/L (97-110); CREATININE 0.56 mg/dl (0.44-1.00); Estimated GFR > 60 mL/min (>60); GLUCOSE 111 mg/dl (70-220); POTASSIUM 3.6 mmol/L (3.5-5.1); SODIUM 143 mmol/L (135-144); TOTAL PROTEIN 6.2 g/dl (6.1-8.1)
[2018-07-04] MEDS: OXYMETAZOLINE 0.05% 15 ML NAS SPRAY NASAL ×2 (09:00→21:00)
[2018-07-04] MEDS: DULOXETINE 30 MG CAP DR PO (09:25)
[2018-07-04] MEDS: traZODone 50 MG TAB PO ×2 (09:25→21:04)
[2018-07-04] MEDS: LACTOBACILLUS RHAMNOSUS CAP PO ×2 (09:26→21:04)
[2018-07-04] MEDS: LORAZEPAM 1 MG TAB PO (09:26)
[2018-07-04] MEDS: GABAPENTIN 100 MG CAP PO ×2 (09:26→13:00)
[2018-07-04] MEDS: ZINC SULFATE 220 MG CAP PO (09:26)
[2018-07-04] MEDS: ONDANSETRON 4 MG INJ IV (11:21)
[2018-07-04 15:37] LABS: ALBUMIN 3.3 g/dL (3.8-4.8); ALPHA-1-GLOBULINS 0.3 g/dL (0.2-0.3); ALPHA-2-GLOBULINS 0.6 g/dL (0.5-0.9); BETA 2 GLOBULINS 0.3 g/dL (0.2-0.5); BETA GLOBULINS 0.3 g/dL (0.4-0.6); GAMMA GLOBULINS 0.8 g/dL (0.8-1.7)
[2018-07-04 15:59] LABS: HEMATOCRIT 31.3 % (37.0-47.0); HEMOGLOBIN 10.1 g/dl (12.0-16.0)
[2018-07-04] MEDS: DAPTOMYCIN 500 MG in SOD CHLORIDE 0.9% 100 ML IVPB (16:06)
[2018-07-04] MEDS: LEVOFLOXACIN 500MG/D5W (PMX) 100 ML IVPB (16:47)
[2018-07-04] MEDS: SOD CHLORIDE 0.9% 1,000 ML IV (16:51)
[2018-07-04 19:03] LABS: HEMATOCRIT 27.2 % (37.0-47.0); HEMOGLOBIN 8.6 g/dl (12.0-16.0)
[2018-07-04] MEDS: CEPASTAT LOZENGE MT (21:04)
[2018-07-04] MEDS: METHADONE (1 MG/ML 5 ML PO UD SYG) PO (21:04)
[2018-07-04] MEDS: ZOLPIDEM 5 MG TAB PO (21:04)
[2018-07-05] MEDS: HYDROmorphONE 1 MG/ML SYG IV ×6 (00:04→20:29)
[2018-07-05] MEDS: DIPHENHYDRAMINE 50 MG INJ IV ×6 (00:04→20:29)
[2018-07-05] MEDS: LORAZEPAM 2 MG INJ IV ×2 (02:34→17:26)
[2018-07-05 07:07] LABS: ADD MAN DIFF? NO
[2018-07-05 07:10] LABS: BASOPHILS % 0.6 % (0.0-2.0); EOSINOPHILS # 0.1 10^3/ul (0.0-0.5); EOSINOPHILS % 1.8 % (0.0-7.0); HEMOGLOBIN 8.3 g/dl (12.0-16.0); LYMPHOCYTES # 0.7 10^3/ul (0.8-2.9); LYMPHOCYTES % 19.9 % (15.0-51.0); MEAN CORPUSCULAR HEMOGLOBIN 25.2 pg (29.0-33.0); MEAN CORPUSCULAR HGB CONC 31.9 g/dl (32.0-37.0); MEAN PLATELET VOLUME 10.2 fl (7.4-10.4); MONOCYTE # 0.3 10^3/ul (0.3-0.9); MONOCYTES % 9.2 % (0.0-11.0); NEUTROPHIL # 2.2 10^3/ul (1.6-7.5); NEUTROPHILS % 67.9 % (39.0-77.0); PLATELET COUNT 190 10^3/UL (140-415); RED BLOOD COUNT 3.29 10^6/ul (4.20-5.40); RED CELL DISTRIBUTION WIDTH 18.4 % (11.5-14.5)
[2018-07-05 07:10] LABS: WHITE BLOOD COUNT 3.3 10^3/ul (4.8-10.8)
[2018-07-05 07:43] LABS: ANION GAP 12 (5-13); BLOOD UREA NITROGEN 9 mg/dl (7-20); CALCIUM 8.6 mg/dl (8.4-10.2); CHLORIDE 101 mmol/L (97-110); CREATININE 0.49 mg/dl (0.44-1.00); Estimated GFR > 60 mL/min (>60); GLUCOSE 86 mg/dl (70-220); POTASSIUM 3.3 mmol/L (3.5-5.1); SODIUM 141 mmol/L (135-144)
[2018-07-05 08:05] LABS: CARBON DIOXIDE 28 mmol/L (21-31)
[2018-07-05] MEDS: OXYMETAZOLINE 0.05% 15 ML NAS SPRAY NASAL ×2 (08:14→21:00)
[2018-07-05] MEDS: ZINC SULFATE 220 MG CAP PO (08:14)
[2018-07-05] MEDS: LACTOBACILLUS RHAMNOSUS CAP PO ×2 (08:15→22:08)
[2018-07-05] MEDS: DULOXETINE 30 MG CAP DR PO (08:15)
[2018-07-05] MEDS: traZODone 50 MG TAB PO ×2 (08:15→22:08)
[2018-07-05] MEDS: ONDANSETRON 4 MG INJ IV (08:15)
[2018-07-05 09:16] LABS: HEMATOCRIT 27.6 % (37.0-47.0); HEMOGLOBIN 8.8 g/dl (12.0-16.0)
[2018-07-05] MEDS: METHADONE (1 MG/ML 5 ML PO UD SYG) PO ×3 (09:37→22:09)
[2018-07-05] MEDS: PANTOPRAZOLE IV 80 MG in SOD CHLORIDE 0.9% 100 ML IV (09:40)
[2018-07-05] MEDS: LEVOFLOXACIN 500MG/D5W (PMX) 100 ML IVPB (16:29)
[2018-07-05] MEDS: CEPASTAT LOZENGE MT (17:29)
[2018-07-05] MEDS: DAPTOMYCIN 500 MG in SOD CHLORIDE 0.9% 100 ML IVPB (17:56)
[2018-07-05 21:29] LABS: HEMATOCRIT 25.9 % (37.0-47.0); HEMOGLOBIN 8.2 g/dl (12.0-16.0)
[2018-07-05] MEDS: ZOLPIDEM 5 MG TAB PO (22:08)
[2018-07-06] MEDS: ONDANSETRON 4 MG INJ IV (00:30)
[2018-07-06] MEDS: DIPHENHYDRAMINE 50 MG INJ IV ×6 (00:30→20:44)
[2018-07-06] MEDS: HYDROmorphONE 1 MG/ML SYG IV ×6 (00:31→20:44)
[2018-07-06] MEDS: LORAZEPAM 2 MG INJ IV ×2 (06:18→18:15)
[2018-07-06] MEDS: LEVOTHYROXINE 50 MCG TAB PO (06:18)
[2018-07-06 06:26] LABS: ADD MAN DIFF? NO
[2018-07-06 06:28] LABS: BASOPHILS % 0.7 % (0.0-2.0); EOSINOPHILS # 0.1 10^3/ul (0.0-0.5); EOSINOPHILS % 1.7 % (0.0-7.0); HEMOGLOBIN 8.3 g/dl (12.0-16.0); LYMPHOCYTES # 0.9 10^3/ul (0.8-2.9); LYMPHOCYTES % 29.3 % (15.0-51.0); MEAN CORPUSCULAR HEMOGLOBIN 25.4 pg (29.0-33.0); MEAN CORPUSCULAR HGB CONC 31.9 g/dl (32.0-37.0); MEAN CORPUSCULAR VOLUME 79.5 fl (82.0-101.0); MEAN PLATELET VOLUME 10.2 fl (7.4-10.4); MONOCYTE # 0.4 10^3/ul (0.3-0.9); MONOCYTES % 12.4 % (0.0-11.0); NEUTROPHIL # 1.6 10^3/ul (1.6-7.5); NEUTROPHILS % 55.2 % (39.0-77.0); PLATELET COUNT 193 10^3/UL (140-415); RED BLOOD COUNT 3.27 10^6/ul (4.20-5.40); RED CELL DISTRIBUTION WIDTH 18.8 % (11.5-14.5)
[2018-07-06 06:28] LABS: WHITE BLOOD COUNT 2.9 10^3/ul (4.8-10.8)
[2018-07-06] MEDS: PANTOPRAZOLE (EC) 40 MG TAB PO (06:28)
[2018-07-06 06:48] LABS: ALANINE AMINOTRANSFERASE 23 IU/L (13-69); ALBUMIN 3.3 g/dl (3.3-4.9); ALBUMIN/GLOBULIN RATIO 1.32; ALKALINE PHOSPHATASE 74 IU/L (42-121); ANION GAP 3 (5-13); ASPARTATE AMINO TRANSFERASE 22 IU/L (15-46); BILIRUBIN,INDIRECT 0.2 mg/dl (0-1.1); BILIRUBIN,TOTAL 0.2 mg/dl (0.2-1.3); BLOOD UREA NITROGEN 13 mg/dl (7-20); CALCIUM 8.5 mg/dl (8.4-10.2); CARBON DIOXIDE 32 mmol/L (21-31); CHLORIDE 105 mmol/L (97-110); CREATININE 0.54 mg/dl (0.44-1.00); Estimated GFR > 60 mL/min (>60); GLUCOSE 119 mg/dl (70-220); POTASSIUM 3.4 mmol/L (3.5-5.1); SODIUM 140 mmol/L (135-144); TOTAL PROTEIN 5.8 g/dl (6.1-8.1)
[2018-07-06] MEDS: DULOXETINE 30 MG CAP DR PO (09:06)
[2018-07-06] MEDS: traZODone 50 MG TAB PO ×2 (09:06→20:44)
[2018-07-06] MEDS: METHADONE (1 MG/ML 5 ML PO UD SYG) PO ×3 (09:06→20:45)
[2018-07-06] MEDS: CHOLECALCIFEROL 2,000 UNIT CAP PO (09:06)
[2018-07-06] MEDS: ZINC SULFATE 220 MG CAP PO (09:06)
[2018-07-06] MEDS: LACTOBACILLUS RHAMNOSUS CAP PO ×2 (09:07→21:00)
[2018-07-06] MEDS: OXYMETAZOLINE 0.05% 15 ML NAS SPRAY NASAL ×2 (09:07→21:00)
[2018-07-06] MEDS: CEPASTAT LOZENGE MT (09:08)
[2018-07-06] MEDS: POTASSIUM CHLORIDE (SR) 10 MEQ TAB PO (11:14)
[2018-07-06 11:16] LABS: HEMATOCRIT 27.9 % (37.0-47.0); HEMOGLOBIN 8.8 g/dl (12.0-16.0)
[2018-07-06 11:21] LABS: MAGNESIUM 1.9 mg/dl (1.7-2.5)
[2018-07-06] MEDS: DAPTOMYCIN 500 MG in SOD CHLORIDE 0.9% 100 ML IVPB (15:52)
[2018-07-06] MEDS: LEVOFLOXACIN 500MG/D5W (PMX) 100 ML IVPB (16:32)
[2018-07-06 20:49] LABS: HEMATOCRIT 26.8 % (37.0-47.0); HEMOGLOBIN 8.5 g/dl (12.0-16.0)
[2018-07-06] MEDS: ZOLPIDEM 5 MG TAB PO (20:54)
[2018-07-07] MEDS: LORAZEPAM 2 MG INJ IV ×4 (00:27→21:29)
[2018-07-07] MEDS: DIPHENHYDRAMINE 50 MG INJ IV ×6 (00:42→23:31)
[2018-07-07] MEDS: HYDROmorphONE 1 MG/ML SYG IV ×7 (00:43→23:31)
[2018-07-07] MEDS ORDERED: HYDROmorphONE 2 MG/ML SYG (04:14)
[2018-07-07] MEDS: PANTOPRAZOLE (EC) 40 MG TAB PO (06:27)
[2018-07-07] MEDS: LEVOTHYROXINE 50 MCG TAB PO (06:27)
[2018-07-07 08:41] LABS: HEMATOCRIT 26.2 % (37.0-47.0); HEMOGLOBIN 8.3 g/dl (12.0-16.0)
[2018-07-07] MEDS: OXYMETAZOLINE 0.05% 15 ML NAS SPRAY NASAL ×2 (08:42→20:45)
[2018-07-07] MEDS: LACTOBACILLUS RHAMNOSUS CAP PO ×2 (08:43→20:42)
[2018-07-07] MEDS: CHOLECALCIFEROL 2,000 UNIT CAP PO (08:43)
[2018-07-07] MEDS: traZODone 50 MG TAB PO ×2 (08:43→20:42)
[2018-07-07] MEDS: ZINC SULFATE 220 MG CAP PO (08:43)
[2018-07-07] MEDS: DULOXETINE 30 MG CAP DR PO (08:43)
[2018-07-07] MEDS: METHADONE (1 MG/ML 5 ML PO UD SYG) PO ×3 (08:44→20:42)
[2018-07-07] MEDS: DAPTOMYCIN 500 MG in SOD CHLORIDE 0.9% 100 ML IVPB (15:20)
[2018-07-07] MEDS: LEVOFLOXACIN 500MG/D5W (PMX) 100 ML IVPB (16:46)
[2018-07-07] MEDS: CEPASTAT LOZENGE MT (18:50)
[2018-07-07 21:43] LABS: HEMATOCRIT 25.7 % (37.0-47.0); HEMOGLOBIN 8.2 g/dl (12.0-16.0)
[2018-07-07] MEDS: ZOLPIDEM 5 MG TAB PO (22:33)
[2018-07-08] MEDS: DIPHENHYDRAMINE 50 MG INJ IV ×6 (03:32→22:41)
[2018-07-08] MEDS: HYDROmorphONE 1 MG/ML SYG IV ×6 (03:32→22:41)
[2018-07-08] MEDS: PANTOPRAZOLE (EC) 40 MG TAB PO (06:29)
[2018-07-08] MEDS: LEVOTHYROXINE 50 MCG TAB PO (06:29)
[2018-07-08] MEDS: LORAZEPAM 2 MG INJ IV ×3 (06:42→17:48)
[2018-07-08] MEDS: METHADONE (1 MG/ML 5 ML PO UD SYG) PO ×3 (08:31→20:58)
[2018-07-08] MEDS: CHOLECALCIFEROL 2,000 UNIT CAP PO (08:32)
[2018-07-08] MEDS: traZODone 50 MG TAB PO ×2 (08:32→20:58)
[2018-07-08] MEDS: LACTOBACILLUS RHAMNOSUS CAP PO ×2 (08:32→20:58)
[2018-07-08] MEDS: ZINC SULFATE 220 MG CAP PO (08:32)
[2018-07-08] MEDS: OXYMETAZOLINE 0.05% 15 ML NAS SPRAY NASAL ×2 (08:32→20:58)
[2018-07-08] MEDS: CEPASTAT LOZENGE MT (11:59)
[2018-07-08] MEDS: DAPTOMYCIN 500 MG in SOD CHLORIDE 0.9% 100 ML IVPB (15:34)
[2018-07-08] MEDS: LEVOFLOXACIN 500MG/D5W (PMX) 100 ML IVPB (16:19)
[2018-07-08] MEDS: ZOLPIDEM 5 MG TAB PO (20:58)
[2018-07-09] MEDS: LORAZEPAM 2 MG INJ IV ×3 (00:49→21:30)
[2018-07-09] MEDS: DIPHENHYDRAMINE 50 MG INJ IV ×6 (02:42→22:45)
[2018-07-09] MEDS: HYDROmorphONE 1 MG/ML SYG IV ×6 (02:43→22:45)
[2018-07-09 06:13] LABS: ADD MAN DIFF? NO
[2018-07-09 06:26] LABS: PLATELET COUNT 210 10^3/UL (140-415); WHITE BLOOD COUNT 4.1 10^3/ul (4.8-10.8)
[2018-07-09 06:27] LABS: EOSINOPHILS # 0.2 10^3/ul (0.0-0.5); EOSINOPHILS % 3.6 % (0.0-7.0); HEMATOCRIT 25.2 % (37.0-47.0); HEMOGLOBIN 7.8 g/dl (12.0-16.0); LYMPHOCYTES # 1.6 10^3/ul (0.8-2.9); LYMPHOCYTES % 38.9 % (15.0-51.0); MEAN CORPUSCULAR HEMOGLOBIN 24.5 pg (29.0-33.0); MEAN CORPUSCULAR VOLUME 79.2 fl (82.0-101.0); MEAN PLATELET VOLUME 10.7 fl (7.4-10.4); MONOCYTE # 0.4 10^3/ul (0.3-0.9); MONOCYTES % 8.5 % (0.0-11.0); NEUTROPHIL # 1.9 10^3/ul (1.6-7.5); NEUTROPHILS % 46.8 % (39.0-77.0); PLATELET COUNT 212 10^3/UL (140-415); RED BLOOD COUNT 3.18 10^6/ul (4.20-5.40); RED CELL DISTRIBUTION WIDTH 18.2 % (11.5-14.5)
[2018-07-09] MEDS: LEVOTHYROXINE 50 MCG TAB PO (06:43)
[2018-07-09] MEDS: PANTOPRAZOLE (EC) 40 MG TAB PO (06:43)
[2018-07-09 06:46] LABS: ANION GAP 9 (5-13); BLOOD UREA NITROGEN 17 mg/dl (7-20); CARBON DIOXIDE 29 mmol/L (21-31); CHLORIDE 103 mmol/L (97-110); CREATININE 0.59 mg/dl (0.44-1.00); Estimated GFR > 60 mL/min (>60); GLUCOSE 89 mg/dl (70-220); PHOSPHORUS 5.8 mg/dl (2.5-4.9); POTASSIUM 3.8 mmol/L (3.5-5.1); SODIUM 141 mmol/L (135-144)
[2018-07-09 06:50] LABS: PARTIAL THROMBOPLASTIN TIME 30.6 Sec (23.0-35.0)
[2018-07-09 06:55] LABS: INR 0.93; PROTIME 12.6 Sec (11.9-14.9)
[2018-07-09 06:57] LABS: THROMBIN TIME 13.8 SEC (13.8-19.1)
[2018-07-09] MEDS: CHOLECALCIFEROL 2,000 UNIT CAP PO (08:31)
[2018-07-09] MEDS: ZINC SULFATE 220 MG CAP PO (08:31)
[2018-07-09] MEDS: METHADONE (1 MG/ML 5 ML PO UD SYG) PO ×3 (08:31→20:17)
[2018-07-09] MEDS: traZODone 50 MG TAB PO ×2 (08:31→20:17)
[2018-07-09] MEDS: LACTOBACILLUS RHAMNOSUS CAP PO ×2 (08:31→20:17)
[2018-07-09] MEDS: OXYMETAZOLINE 0.05% 15 ML NAS SPRAY NASAL ×2 (08:36→20:17)
[2018-07-09] MEDS: CEPASTAT LOZENGE MT ×2 (10:45→13:28)
[2018-07-09] MEDS: LEVOFLOXACIN 500MG/D5W (PMX) 100 ML IVPB (15:30)
[2018-07-09] MEDS: DAPTOMYCIN 500 MG in SOD CHLORIDE 0.9% 100 ML IVPB (16:56)
[2018-07-09] MEDS: ZOLPIDEM 5 MG TAB PO (20:18)
[2018-07-10] MEDS: DIPHENHYDRAMINE 50 MG INJ IV ×6 (02:49→22:55)
[2018-07-10] MEDS: HYDROmorphONE 1 MG/ML SYG IV ×6 (02:49→22:55)
[2018-07-10 06:12] LABS: ADD MAN DIFF? NO
[2018-07-10 06:27] LABS: WHITE BLOOD COUNT 4.9 10^3/ul (4.8-10.8)
[2018-07-10 06:27] LABS: BASOPHILS % 0.8 % (0.0-2.0); EOSINOPHILS # 0.2 10^3/ul (0.0-0.5); EOSINOPHILS % 3.5 % (0.0-7.0); HEMATOCRIT 25.7 % (37.0-47.0); HEMOGLOBIN 8.1 g/dl (12.0-16.0); LYMPHOCYTES # 1.7 10^3/ul (0.8-2.9); LYMPHOCYTES % 35.4 % (15.0-51.0); MEAN CORPUSCULAR HEMOGLOBIN 25.1 pg (29.0-33.0); MEAN CORPUSCULAR HGB CONC 31.5 g/dl (32.0-37.0); MEAN CORPUSCULAR VOLUME 79.6 fl (82.0-101.0); MEAN PLATELET VOLUME 10.3 fl (7.4-10.4); MONOCYTE # 0.4 10^3/ul (0.3-0.9); MONOCYTES % 7.1 % (0.0-11.0); NEUTROPHIL # 2.6 10^3/ul (1.6-7.5); NEUTROPHILS % 52.2 % (39.0-77.0); PLATELET COUNT 224 10^3/UL (140-415); RED BLOOD COUNT 3.23 10^6/ul (4.20-5.40); RED CELL DISTRIBUTION WIDTH 18.2 % (11.5-14.5)
[2018-07-10] MEDS: PANTOPRAZOLE (EC) 40 MG TAB PO (06:39)
[2018-07-10] MEDS: LEVOTHYROXINE 50 MCG TAB PO (06:39)
[2018-07-10 07:08] LABS: CREATINE KINASE < 20 IU/L (23-200)
[2018-07-10 07:13] LABS: PHOSPHORUS 4.9 mg/dl (2.5-4.9)
[2018-07-10 07:15] LABS: ANION GAP 11 (5-13); BLOOD UREA NITROGEN 18 mg/dl (7-20); CALCIUM 9.2 mg/dl (8.4-10.2); CARBON DIOXIDE 26 mmol/L (21-31); CHLORIDE 104 mmol/L (97-110); CREATININE 0.63 mg/dl (0.44-1.00); Estimated GFR > 60 mL/min (>60); GLUCOSE 100 mg/dl (70-220); POTASSIUM 3.9 mmol/L (3.5-5.1); SODIUM 141 mmol/L (135-144)
[2018-07-10] MEDS: ZINC SULFATE 220 MG CAP PO (08:25)
[2018-07-10] MEDS: CHOLECALCIFEROL 2,000 UNIT CAP PO (08:25)
[2018-07-10] MEDS: OXYMETAZOLINE 0.05% 15 ML NAS SPRAY NASAL ×2 (08:25→20:15)
[2018-07-10] MEDS: LACTOBACILLUS RHAMNOSUS CAP PO ×2 (08:25→20:20)
[2018-07-10] MEDS: traZODone 50 MG TAB PO ×2 (08:25→20:21)
[2018-07-10] MEDS: METHADONE (1 MG/ML 5 ML PO UD SYG) PO ×3 (08:25→21:41)
[2018-07-10] MEDS: CEPASTAT LOZENGE MT (10:37)
[2018-07-10] MEDS: LORAZEPAM 2 MG INJ IV ×2 (11:37→20:20)
[2018-07-10] MEDS: DAPTOMYCIN 500 MG in SOD CHLORIDE 0.9% 100 ML IVPB (15:00)
[2018-07-10] MEDS: LEVOFLOXACIN 500MG/D5W (PMX) 100 ML IVPB (15:33)
[2018-07-10] MEDS: ZOLPIDEM 5 MG TAB PO (21:41)
[2018-07-11] MEDS: DIPHENHYDRAMINE 50 MG INJ IV ×6 (02:54→23:06)
[2018-07-11] MEDS: HYDROmorphONE 1 MG/ML SYG IV ×6 (02:54→23:05)
[2018-07-11 06:06] LABS: ADD MAN DIFF? NO
[2018-07-11 06:36] LABS: BASOPHIL # 0.1 10^3/ul (0.0-0.1); BASOPHILS % 1.1 % (0.0-2.0); EOSINOPHILS # 0.2 10^3/ul (0.0-0.5); EOSINOPHILS % 3.3 % (0.0-7.0); HEMATOCRIT 24.7 % (37.0-47.0); HEMOGLOBIN 7.7 g/dl (12.0-16.0); LYMPHOCYTES # 1.4 10^3/ul (0.8-2.9); LYMPHOCYTES % 30.9 % (15.0-51.0); MEAN CORPUSCULAR HEMOGLOBIN 24.8 pg (29.0-33.0); MEAN CORPUSCULAR HGB CONC 31.2 g/dl (32.0-37.0); MEAN CORPUSCULAR VOLUME 79.4 fl (82.0-101.0); MEAN PLATELET VOLUME 10.8 fl (7.4-10.4); MONOCYTE # 0.4 10^3/ul (0.3-0.9); MONOCYTES % 7.8 % (0.0-11.0); NEUTROPHIL # 2.6 10^3/ul (1.6-7.5); NUCLEATED RED BLOOD CELLS% 0.4 /100WBC (0.0-0.0); PLATELET COUNT 198 10^3/UL (140-415); RED BLOOD COUNT 3.11 10^6/ul (4.20-5.40); RED CELL DISTRIBUTION WIDTH 18.4 % (11.5-14.5)
[2018-07-11 06:36] LABS: WHITE BLOOD COUNT 4.6 10^3/ul (4.8-10.8)
[2018-07-11] MEDS: PANTOPRAZOLE (EC) 40 MG TAB PO (06:50)
[2018-07-11] MEDS: LEVOTHYROXINE 50 MCG TAB PO (06:50)
[2018-07-11 06:56] LABS: MAGNESIUM 2.1 mg/dl (1.7-2.5)
[2018-07-11 06:56] LABS: PHOSPHORUS 4.7 mg/dl (2.5-4.9)
[2018-07-11 07:25] LABS: ANION GAP 7 (5-13); BLOOD UREA NITROGEN 13 mg/dl (7-20); CARBON DIOXIDE 28 mmol/L (21-31); CHLORIDE 105 mmol/L (97-110); CREATININE 0.51 mg/dl (0.44-1.00); Estimated GFR > 60 mL/min (>60); GLUCOSE 99 mg/dl (70-220); POTASSIUM 3.6 mmol/L (3.5-5.1); SODIUM 140 mmol/L (135-144)
[2018-07-11] MEDS: LORAZEPAM 2 MG INJ IV ×2 (08:02→21:08)
[2018-07-11] MEDS: OXYMETAZOLINE 0.05% 15 ML NAS SPRAY NASAL ×2 (09:00→21:00)
[2018-07-11] MEDS: CHOLECALCIFEROL 2,000 UNIT CAP PO (09:22)
[2018-07-11] MEDS: LACTOBACILLUS RHAMNOSUS CAP PO ×2 (09:22→21:00)
[2018-07-11] MEDS: METHADONE (1 MG/ML 5 ML PO UD SYG) PO ×4 (09:22→21:49)
[2018-07-11] MEDS: traZODone 50 MG TAB PO ×2 (09:22→21:00)
[2018-07-11] MEDS ORDERED: ZINC SULFATE 220 MG CAP (09:27)
[2018-07-11] MEDS: ZINC SULFATE 220 MG CAP PO (09:29)
[2018-07-11] MEDS: LEVOFLOXACIN 500MG/D5W (PMX) 100 ML IVPB (16:43)
[2018-07-12] MEDS: ZOLPIDEM 5 MG TAB PO ×2 (00:11→21:05)
[2018-07-12] MEDS: PROMETHAZINE/CODEINE 5ML CUP PO (00:51)
[2018-07-12] MEDS: ACETAMINOPHEN 500 MG TAB PO ×2 (02:30→10:13)
[2018-07-12] MEDS: DIPHENHYDRAMINE 50 MG INJ IV ×6 (03:06→23:29)
[2018-07-12] MEDS: HYDROmorphONE 1 MG/ML SYG IV ×6 (03:06→23:30)
[2018-07-12] MEDS: ACETAMINOPHEN 325 MG TAB PO (03:43)
[2018-07-12 03:49] LABS: ADD MAN DIFF? NO
[2018-07-12 04:10] LABS: ALANINE AMINOTRANSFERASE 21 IU/L (13-69); ALBUMIN 3.8 g/dl (3.3-4.9); ALBUMIN/GLOBULIN RATIO 1.52; ALKALINE PHOSPHATASE 83 IU/L (42-121); ANION GAP 12 (5-13); ASPARTATE AMINO TRANSFERASE 31 IU/L (15-46); BILIRUBIN,INDIRECT 0.5 mg/dl (0-1.1); BILIRUBIN,TOTAL 0.5 mg/dl (0.2-1.3); BLOOD UREA NITROGEN 12 mg/dl (7-20); CALCIUM 9.3 mg/dl (8.4-10.2); CARBON DIOXIDE 25 mmol/L (21-31); CHLORIDE 103 mmol/L (97-110); CREATININE 0.49 mg/dl (0.44-1.00); Estimated GFR > 60 mL/min (>60); GLUCOSE 122 mg/dl (70-220); POTASSIUM 3.6 mmol/L (3.5-5.1); SODIUM 140 mmol/L (135-144); TOTAL PROTEIN 6.3 g/dl (6.1-8.1)
[2018-07-12 04:17] LABS: BASOPHILS % 0.5 % (0.0-2.0); EOSINOPHILS # 0.1 10^3/ul (0.0-0.5); EOSINOPHILS % 1.1 % (0.0-7.0); HEMATOCRIT 25.4 % (37.0-47.0); HEMOGLOBIN 8.1 g/dl (12.0-16.0); LYMPHOCYTES # 0.7 10^3/ul (0.8-2.9); LYMPHOCYTES % 11.2 % (15.0-51.0); MEAN CORPUSCULAR HEMOGLOBIN 24.8 pg (29.0-33.0); MEAN CORPUSCULAR HGB CONC 31.9 g/dl (32.0-37.0); MEAN CORPUSCULAR VOLUME 77.9 fl (82.0-101.0); MEAN PLATELET VOLUME 10.8 fl (7.4-10.4); MONOCYTE # 0.2 10^3/ul (0.3-0.9); MONOCYTES % 3.4 % (0.0-11.0); NEUTROPHIL # 5.4 10^3/ul (1.6-7.5); NEUTROPHILS % 82.7 % (39.0-77.0); NUCLEATED RED BLOOD CELLS # 0.1 10^3/ul (0.0-0.0); NUCLEATED RED BLOOD CELLS% 0.8 /100WBC (0.0-0.0); PLATELET COUNT 184 10^3/UL (140-415); RED BLOOD COUNT 3.26 10^6/ul (4.20-5.40); RED CELL DISTRIBUTION WIDTH 18.5 % (11.5-14.5)
[2018-07-12 04:17] LABS: WHITE BLOOD COUNT 6.5 10^3/ul (4.8-10.8)
[2018-07-12] MEDS: LORAZEPAM 2 MG INJ IV ×3 (04:21→22:21)
[2018-07-12 04:42] LABS: LACTIC ACID 3.2 mmol/L (0.5-2.0)
[2018-07-12] MEDS: MEROPENEM 1 GM/50ML(PMX) 50 ML IVPB ×2 (05:12→22:21)
[2018-07-12] MEDS: SOD CHLORIDE 0.9% 1,000 ML IV (05:12)
[2018-07-12] MEDS: PANTOPRAZOLE (EC) 40 MG TAB PO (06:11)
[2018-07-12] MEDS: LEVOTHYROXINE 50 MCG TAB PO (06:11)
[2018-07-12 07:00] LABS: C-REACTIVE PROTEIN 2.7 mg/dl (0.0-0.9)
[2018-07-12] MEDS: SOD CHLORIDE 0.9% 500 ML IV ×2 (07:16→14:45)
[2018-07-12 08:03] LABS: ERYTHROCYTE SEDIMENTATION RATE 24 mm/Hr (0-30)
[2018-07-12] MEDS: LACTOBACILLUS RHAMNOSUS CAP PO ×2 (08:40→21:03)
[2018-07-12] MEDS: traZODone 50 MG TAB PO ×2 (08:40→21:03)
[2018-07-12] MEDS: CHOLECALCIFEROL 2,000 UNIT CAP PO (08:40)
[2018-07-12] MEDS: LINEZOLID 600 MG/D5W (PMX) 300 ML IVPB ×2 (08:41→17:19)
[2018-07-12] MEDS: METHADONE (1 MG/ML 5 ML PO UD SYG) PO ×3 (08:41→21:03)
[2018-07-12 08:48] LABS: LACTIC ACID 1.6 mmol/L (0.5-2.0)
[2018-07-12] MEDS: ALTEPLASE (CATHFLO) 2 MG INJ CATHETER ×3 (12:03→15:32)
[2018-07-12 14:14] LABS: ADD UMIC YES; UR ASCORBIC ACID NEGATIVE (NEGATIVE); UR BACTERIA FEW /HPF (NONE SEEN); UR BILIRUBIN (Dip) NEGATIVE (NEGATIVE); UR BLOOD (Dip) 1+ mg/dL (NEGATIVE); UR CLARITY CLEAR (CLEAR); UR COLOR STRAW (YELLOW); UR GLUCOSE (Dip) NEGATIVE (NEGATIVE); UR KETONES (Dip) NEGATIVE (NEGATIVE); UR LEUKOCYTE ESTERASE (Dip) NEGATIVE Leu/ul (NEGATIVE); UR NITRITE (Dip) NEGATIVE (NEGATIVE); UR NONSQUAMOUS EPITHELIAL CELL 2 /HPF (NONE SEEN); UR RBC 1 /HPF (0-5); UR SPECIFIC GRAVITY (Dip) 1.006 (1.003-1.030); UR SQUAMOUS EPITHELIAL CELL FEW /HPF (FEW); UR TOTAL PROTEIN (Dip) NEGATIVE (NEGATIVE); UR UROBILINOGEN (Dip) NEGATIVE (NEGATIVE); UR WBC 5 /HPF (0-5)
[2018-07-12 14:36] LABS: LACTIC ACID 3.3 mmol/L (0.5-2.0)
[2018-07-12] MEDS: DAPTOMYCIN 500 MG in SOD CHLORIDE 0.9% 100 ML IVPB (23:16)
[2018-07-13] MEDS: DIPHENHYDRAMINE 50 MG INJ IV ×5 (03:10→21:43)
[2018-07-13] MEDS: HYDROmorphONE 1 MG/ML SYG IV ×5 (03:11→21:44)
[2018-07-13] MEDS: PANTOPRAZOLE (EC) 40 MG TAB PO (05:49)
[2018-07-13] MEDS: MEROPENEM 1 GM/50ML(PMX) 50 ML IVPB ×3 (05:49→21:13)
[2018-07-13] MEDS: LEVOTHYROXINE 50 MCG TAB PO (05:49)
[2018-07-13 06:20] LABS: WHITE BLOOD COUNT 4.5 10^3/ul (4.8-10.8)
[2018-07-13 06:20] LABS: ABNORMAL IP MESSAGE 1; HEMATOCRIT 20.6 % (37.0-47.0); MEAN CORPUSCULAR HEMOGLOBIN 24.8 pg (29.0-33.0); MEAN CORPUSCULAR HGB CONC 31.6 g/dl (32.0-37.0); MEAN CORPUSCULAR VOLUME 78.6 fl (82.0-101.0); MEAN PLATELET VOLUME 10.2 fl (7.4-10.4); PLATELET COUNT 158 10^3/UL (140-415); RED BLOOD COUNT 2.62 10^6/ul (4.20-5.40); RED CELL DISTRIBUTION WIDTH 19.2 % (11.5-14.5)
[2018-07-13 06:41] LABS: ADD MAN DIFF? YES; HEMOGLOBIN 6.5 g/dl (12.0-16.0); POSITIVE DIFF @See below
[2018-07-13 07:14] LABS: ANION GAP 7 (5-13); BLOOD UREA NITROGEN 11 mg/dl (7-20); CALCIUM 8.4 mg/dl (8.4-10.2); CARBON DIOXIDE 26 mmol/L (21-31); CHLORIDE 108 mmol/L (97-110); CREATININE 0.45 mg/dl (0.44-1.00); Estimated GFR > 60 mL/min (>60); GLUCOSE 87 mg/dl (70-220); POTASSIUM 3.7 mmol/L (3.5-5.1); SODIUM 141 mmol/L (135-144)
[2018-07-13 07:17] LABS: CREATINE KINASE < 20 IU/L (23-200)
[2018-07-13 07:40] LABS: PHOSPHORUS 4.9 mg/dl (2.5-4.9)
[2018-07-13 07:48] LABS: ANISOCYTOSIS 2+ (0-0); BAND NEUTROPHILS % (M) 1 % (0-4); ELLIPTO 1+ (0-0); EOSINOPHILS % (M) 2 % (0-7); HYPOCHROMASIA 1+ (0-0); LYMPHOCYTES #M 1.1 10^3/ul (0.8-2.9); LYMPHOCYTES % (M) 25 % (15-51); MICROCYTOSIS 2+ (0-0); MONOCYTES % (M) 1 % (0-11); PLATELET ESTIMATE NORMAL; POIKILOCYTOSIS 1+ (0-0); POLYCHROMASIA 3+ (0-0); REACTIVE LYMPHOCYTES #M 0.1 10^3/ul (0.0-0.0); REACTIVE LYMPHOCYTES% (M) 3 % (0-0); SEG NEUT #M 3.1 10^3/ul (1.6-7.5); SEGMENTED NEUTROPHILS (M) % 68 % (39-77); SMUDGE%M 9 % (0-0); STOMATOCYTES 1+ (0-0); TEAR DROP CELLS 1+ (0-0)
[2018-07-13] MEDS: LACTOBACILLUS RHAMNOSUS CAP PO ×2 (08:36→21:13)
[2018-07-13] MEDS: traZODone 50 MG TAB PO ×2 (08:36→21:13)
[2018-07-13] MEDS: CHOLECALCIFEROL 2,000 UNIT CAP PO (08:36)
[2018-07-13] MEDS: ZINC SULFATE 220 MG CAP PO (08:36)
[2018-07-13] MEDS: METHADONE (1 MG/ML 5 ML PO UD SYG) PO ×3 (08:37→21:13)
[2018-07-13] MEDS: LORAZEPAM 2 MG INJ IV ×3 (08:42→23:55)
[2018-07-13] MEDS: PROMETHAZINE/CODEINE 5ML CUP PO ×2 (15:48→19:53)
[2018-07-13] MEDS: ZOLPIDEM 5 MG TAB PO (19:48)
[2018-07-13 22:30] LABS: AHG CROSSMATCH 1 2
[2018-07-14] MEDS: HYDROmorphONE 2 MG TAB PO ×3 (00:15→12:19)
[2018-07-14] MEDS: DAPTOMYCIN 500 MG in SOD CHLORIDE 0.9% 100 ML IVPB (03:43)
[2018-07-14] MEDS: DIPHENHYDRAMINE 50 MG INJ IV ×4 (03:44→22:07)
[2018-07-14] MEDS: HYDROmorphONE 1 MG/ML SYG IV ×4 (03:44→22:07)
[2018-07-14] MEDS: PROMETHAZINE/CODEINE 5ML CUP PO ×5 (03:52→23:58)
[2018-07-14] MEDS: PANTOPRAZOLE (EC) 40 MG TAB PO (05:33)
[2018-07-14] MEDS: MEROPENEM 1 GM/50ML(PMX) 50 ML IVPB ×3 (05:33→21:09)
[2018-07-14] MEDS: LORAZEPAM 2 MG INJ IV ×3 (06:00→21:02)
[2018-07-14] MEDS: LEVOTHYROXINE 50 MCG TAB PO (06:00)
[2018-07-14 06:06] LABS: ADD MAN DIFF? NO
[2018-07-14 06:14] LABS: BASOPHILS % 0.5 % (0.0-2.0); EOSINOPHILS # 0.1 10^3/ul (0.0-0.5); EOSINOPHILS % 3.8 % (0.0-7.0); HEMATOCRIT 26.6 % (37.0-47.0); HEMOGLOBIN 8.7 g/dl (12.0-16.0); LYMPHOCYTES # 1.3 10^3/ul (0.8-2.9); MEAN CORPUSCULAR HEMOGLOBIN 26.3 pg (29.0-33.0); MEAN CORPUSCULAR HGB CONC 32.7 g/dl (32.0-37.0); MEAN CORPUSCULAR VOLUME 80.4 fl (82.0-101.0); MEAN PLATELET VOLUME 10.1 fl (7.4-10.4); MONOCYTE # 0.5 10^3/ul (0.3-0.9); MONOCYTES % 12.1 % (0.0-11.0); NEUTROPHIL # 1.8 10^3/ul (1.6-7.5); NEUTROPHILS % 49.3 % (39.0-77.0); PLATELET COUNT 168 10^3/UL (140-415); RED BLOOD COUNT 3.31 10^6/ul (4.20-5.40)
[2018-07-14 06:14] LABS: WHITE BLOOD COUNT 3.7 10^3/ul (4.8-10.8)
[2018-07-14 06:41] LABS: MAGNESIUM 2.2 mg/dl (1.7-2.5)
[2018-07-14 07:05] LABS: ALANINE AMINOTRANSFERASE 36 IU/L (13-69); ALBUMIN 3.3 g/dl (3.3-4.9); ALBUMIN/GLOBULIN RATIO 1.13; ALKALINE PHOSPHATASE 61 IU/L (42-121); ANION GAP 8 (5-13); ASPARTATE AMINO TRANSFERASE 27 IU/L (15-46); BILIRUBIN,INDIRECT 0.3 mg/dl (0-1.1); BILIRUBIN,TOTAL 0.3 mg/dl (0.2-1.3); BLOOD UREA NITROGEN 10 mg/dl (7-20); CALCIUM 8.7 mg/dl (8.4-10.2); CARBON DIOXIDE 28 mmol/L (21-31); CHLORIDE 107 mmol/L (97-110); CREATININE 0.44 mg/dl (0.44-1.00); Estimated GFR > 60 mL/min (>60); GLUCOSE 89 mg/dl (70-220); POTASSIUM 3.7 mmol/L (3.5-5.1); SODIUM 143 mmol/L (135-144); TOTAL PROTEIN 6.2 g/dl (6.1-8.1)
[2018-07-14] MEDS: ZINC SULFATE 220 MG CAP PO (08:54)
[2018-07-14] MEDS: traZODone 50 MG TAB PO ×2 (08:54→21:02)
[2018-07-14] MEDS: LACTOBACILLUS RHAMNOSUS CAP PO ×2 (08:54→21:02)
[2018-07-14] MEDS: CHOLECALCIFEROL 2,000 UNIT CAP PO (08:54)
[2018-07-14] MEDS: METHADONE (1 MG/ML 5 ML PO UD SYG) PO ×3 (08:54→21:02)
[2018-07-14] MEDS: SOD CHLORIDE 0.9% 500 ML IV (15:07)
[2018-07-14 15:50] LABS: ADD UMIC NO; UR ASCORBIC ACID NEGATIVE (NEGATIVE); UR BILIRUBIN (Dip) NEGATIVE (NEGATIVE); UR BLOOD (Dip) NEGATIVE (NEGATIVE); UR CLARITY CLEAR (CLEAR); UR COLOR STRAW (YELLOW); UR GLUCOSE (Dip) NEGATIVE (NEGATIVE); UR KETONES (Dip) NEGATIVE (NEGATIVE); UR LEUKOCYTE ESTERASE (Dip) NEGATIVE Leu/ul (NEGATIVE); UR NITRITE (Dip) NEGATIVE (NEGATIVE); UR SPECIFIC GRAVITY (Dip) 1.005 (1.003-1.030); UR TOTAL PROTEIN (Dip) NEGATIVE (NEGATIVE); UR UROBILINOGEN (Dip) NEGATIVE (NEGATIVE)
[2018-07-14] MEDS: ZOLPIDEM 5 MG TAB PO (23:04)
[2018-07-15] MEDS: HYDROmorphONE 2 MG TAB PO ×2 (01:38→16:32)
[2018-07-15] MEDS: DIPHENHYDRAMINE 50 MG INJ IV ×4 (03:58→21:23)
[2018-07-15] MEDS: HYDROmorphONE 1 MG/ML SYG IV ×4 (03:58→21:24)
[2018-07-15] MEDS: MEROPENEM 1 GM/50ML(PMX) 50 ML IVPB ×2 (05:34→13:36)
[2018-07-15] MEDS: LORAZEPAM 2 MG INJ IV ×3 (05:34→20:12)
[2018-07-15] MEDS: PANTOPRAZOLE (EC) 40 MG TAB PO (05:34)
[2018-07-15] MEDS: LEVOTHYROXINE 50 MCG TAB PO (05:34)
[2018-07-15 08:27] LABS: ADD MAN DIFF? NO
[2018-07-15 08:31] LABS: BASOPHILS % 0.9 % (0.0-2.0); EOSINOPHILS # 0.1 10^3/ul (0.0-0.5); EOSINOPHILS % 3.2 % (0.0-7.0); HEMATOCRIT 31.3 % (37.0-47.0); HEMOGLOBIN 9.9 g/dl (12.0-16.0); LYMPHOCYTES # 1.8 10^3/ul (0.8-2.9); LYMPHOCYTES % 40.9 % (15.0-51.0); MEAN CORPUSCULAR HEMOGLOBIN 25.7 pg (29.0-33.0); MEAN CORPUSCULAR HGB CONC 31.6 g/dl (32.0-37.0); MEAN CORPUSCULAR VOLUME 81.3 fl (82.0-101.0); MEAN PLATELET VOLUME 10.6 fl (7.4-10.4); MONOCYTE # 0.4 10^3/ul (0.3-0.9); MONOCYTES % 8.9 % (0.0-11.0); NEUTROPHILS % 45.9 % (39.0-77.0); PLATELET COUNT 218 10^3/UL (140-415); RED BLOOD COUNT 3.85 10^6/ul (4.20-5.40); RED CELL DISTRIBUTION WIDTH 18.9 % (11.5-14.5)
[2018-07-15 08:31] LABS: WHITE BLOOD COUNT 4.4 10^3/ul (4.8-10.8)
[2018-07-15] MEDS: LACTOBACILLUS RHAMNOSUS CAP PO ×2 (08:32→20:14)
[2018-07-15] MEDS: traZODone 50 MG TAB PO ×2 (08:32→20:14)
[2018-07-15] MEDS: CHOLECALCIFEROL 2,000 UNIT CAP PO (08:32)
[2018-07-15] MEDS: ZINC SULFATE 220 MG CAP PO (08:32)
[2018-07-15] MEDS: PROMETHAZINE/CODEINE 5ML CUP PO ×2 (08:33→20:23)
[2018-07-15] MEDS: METHADONE (1 MG/ML 5 ML PO UD SYG) PO ×3 (08:34→20:14)
[2018-07-15 09:07] LABS: ALANINE AMINOTRANSFERASE 26 IU/L (13-69); ALBUMIN 4.1 g/dl (3.3-4.9); ALBUMIN/GLOBULIN RATIO 1.28; ALKALINE PHOSPHATASE 86 IU/L (42-121); ANION GAP 8 (5-13); ASPARTATE AMINO TRANSFERASE 28 IU/L (15-46); BILIRUBIN,INDIRECT 0.4 mg/dl (0-1.1); BILIRUBIN,TOTAL 0.4 mg/dl (0.2-1.3); BLOOD UREA NITROGEN 14 mg/dl (7-20); CALCIUM 9.5 mg/dl (8.4-10.2); CARBON DIOXIDE 27 mmol/L (21-31); CHLORIDE 107 mmol/L (97-110); CREATININE 0.49 mg/dl (0.44-1.00); Estimated GFR > 60 mL/min (>60); GLUCOSE 93 mg/dl (70-220); POTASSIUM 4.3 mmol/L (3.5-5.1); SODIUM 142 mmol/L (135-144); TOTAL PROTEIN 7.3 g/dl (6.1-8.1)
[2018-07-15 09:29] LABS: ERYTHROCYTE SEDIMENTATION RATE 34 mm/Hr (0-30)
[2018-07-15 10:14] LABS: C-REACTIVE PROTEIN 3.5 mg/dl (0.0-0.9)
[2018-07-15] MEDS ORDERED: HYDROmorphONE 1 MG/ML SYG IV (16:00)
[2018-07-15] MEDS ORDERED: DIPHENHYDRAMINE 50 MG INJ IV (16:00)
[2018-07-15] MEDS: LEVOFLOXACIN 750MG/D5W (PMX) 150 ML IVPB (18:04)
[2018-07-15] MEDS: ZOLPIDEM 5 MG TAB PO (22:53)
[2018-07-16] MEDS: MUPIROCIN 2% 22 GM OINT TOP ×4 (01:01→20:12)
[2018-07-16] MEDS: PROMETHAZINE/CODEINE 5ML CUP PO ×3 (01:50→22:11)
[2018-07-16] MEDS: HYDROmorphONE 2 MG TAB PO ×2 (01:50→18:03)
[2018-07-16] MEDS: DIPHENHYDRAMINE 50 MG INJ IV ×4 (03:19→20:06)
[2018-07-16] MEDS: HYDROmorphONE 1 MG/ML SYG IV ×4 (03:20→20:07)
[2018-07-16] MEDS: LEVOTHYROXINE 50 MCG TAB PO (05:37)
[2018-07-16] MEDS: PANTOPRAZOLE (EC) 40 MG TAB PO (05:37)
[2018-07-16] MEDS: LORAZEPAM 2 MG INJ IV ×2 (05:43→18:03)
[2018-07-16] MEDS: METHADONE (1 MG/ML 5 ML PO UD SYG) PO ×3 (08:50→20:07)
[2018-07-16] MEDS: ZINC SULFATE 220 MG CAP PO (08:51)
[2018-07-16] MEDS: traZODone 50 MG TAB PO ×2 (08:51→20:07)
[2018-07-16] MEDS: CHOLECALCIFEROL 2,000 UNIT CAP PO (08:51)
[2018-07-16] MEDS: LACTOBACILLUS RHAMNOSUS CAP PO ×2 (08:51→20:07)
[2018-07-16] MEDS: ALTEPLASE (CATHFLO) 2 MG INJ CATHETER ×2 (11:09→11:55)
[2018-07-16 11:17] LABS: ADD MAN DIFF? NO
[2018-07-16 11:19] LABS: BASOPHILS % 0.7 % (0.0-2.0); EOSINOPHILS # 0.1 10^3/ul (0.0-0.5); EOSINOPHILS % 3.2 % (0.0-7.0); HEMOGLOBIN 9.4 g/dl (12.0-16.0); LYMPHOCYTES # 1.1 10^3/ul (0.8-2.9); LYMPHOCYTES % 26.3 % (15.0-51.0); MEAN CORPUSCULAR HEMOGLOBIN 25.1 pg (29.0-33.0); MEAN CORPUSCULAR HGB CONC 31.3 g/dl (32.0-37.0); MEAN PLATELET VOLUME 10.1 fl (7.4-10.4); MONOCYTE # 0.3 10^3/ul (0.3-0.9); MONOCYTES % 8.1 % (0.0-11.0); NEUTROPHIL # 2.5 10^3/ul (1.6-7.5); NEUTROPHILS % 61.2 % (39.0-77.0); PLATELET COUNT 210 10^3/UL (140-415); RED BLOOD COUNT 3.75 10^6/ul (4.20-5.40); RED CELL DISTRIBUTION WIDTH 19.2 % (11.5-14.5)
[2018-07-16 11:19] LABS: WHITE BLOOD COUNT 4.1 10^3/ul (4.8-10.8)
[2018-07-16 11:37] LABS: ANION GAP 8 (5-13); BLOOD UREA NITROGEN 13 mg/dl (7-20); CARBON DIOXIDE 26 mmol/L (21-31); CHLORIDE 106 mmol/L (97-110); CREATININE 0.39 mg/dl (0.44-1.00); Estimated GFR > 60 mL/min (>60); GLUCOSE 166 mg/dl (70-220); POTASSIUM 3.4 mmol/L (3.5-5.1); SODIUM 140 mmol/L (135-144)
[2018-07-16 13:27] LABS: ANA SCREEN NEGATIVE (NEGATIVE)
[2018-07-16] MEDS: LEVOFLOXACIN 750MG/D5W (PMX) 150 ML IVPB (16:04)
[2018-07-16 18:06] LABS: RHEUMATOID FACTOR NEGATIVE (NEGATIVE)
[2018-07-16] MEDS: ZOLPIDEM 5 MG TAB PO (21:47)
[2018-07-17] MEDS: LORAZEPAM 2 MG INJ IV ×3 (01:15→15:17)
[2018-07-17] MEDS: DIPHENHYDRAMINE 50 MG INJ IV ×4 (02:00→22:09)
[2018-07-17] MEDS: HYDROmorphONE 1 MG/ML SYG IV ×4 (02:01→22:12)
[2018-07-17] MEDS: PROMETHAZINE/CODEINE 5ML CUP PO ×4 (04:51→22:18)
[2018-07-17] MEDS: HYDROmorphONE 2 MG TAB PO ×2 (04:51→17:23)
[2018-07-17] MEDS: LEVOTHYROXINE 50 MCG TAB PO (05:42)
[2018-07-17] MEDS: PANTOPRAZOLE (EC) 40 MG TAB PO (05:43)
[2018-07-17] MEDS: CHOLECALCIFEROL 2,000 UNIT CAP PO (09:16)
[2018-07-17] MEDS: traZODone 50 MG TAB PO ×2 (09:16→20:54)
[2018-07-17] MEDS: LACTOBACILLUS RHAMNOSUS CAP PO ×2 (09:16→22:09)
[2018-07-17] MEDS: ZINC SULFATE 220 MG CAP PO (09:16)
[2018-07-17] MEDS: METHADONE (1 MG/ML 5 ML PO UD SYG) PO ×3 (09:16→20:54)
[2018-07-17] MEDS: MUPIROCIN 2% 22 GM OINT TOP ×3 (09:18→20:55)
[2018-07-17 14:07] LABS: ANA SCREEN NEGATIVE (NEGATIVE)
[2018-07-17] MEDS: LEVOFLOXACIN 750MG/D5W (PMX) 150 ML IVPB (15:20)
[2018-07-17] MEDS: ZOLPIDEM 5 MG TAB PO (20:54)
[2018-07-17 21:03] LABS: CYCLIC CITRULLINATED PEP IGG <16 UNITS; FACTOR VIII ACTIVITY 81 % normal (50-180)
[2018-07-18] MEDS: LORAZEPAM 2 MG INJ IV ×4 (01:01→23:19)
[2018-07-18] MEDS: HYDROmorphONE 2 MG TAB PO ×3 (01:03→16:57)
[2018-07-18] MEDS: LEVOTHYROXINE 50 MCG TAB PO (06:09)
[2018-07-18] MEDS: HYDROmorphONE 1 MG/ML SYG IV ×3 (06:09→22:14)
[2018-07-18] MEDS: DIPHENHYDRAMINE 50 MG INJ IV ×4 (06:09→22:14)
[2018-07-18] MEDS: PANTOPRAZOLE (EC) 40 MG TAB PO (06:09)
[2018-07-18 07:08] LABS: ADD MAN DIFF? NO
[2018-07-18 07:13] LABS: BASOPHIL # 0.1 10^3/ul (0.0-0.1); BASOPHILS % 1.1 % (0.0-2.0); EOSINOPHILS # 0.2 10^3/ul (0.0-0.5); EOSINOPHILS % 3.8 % (0.0-7.0); HEMOGLOBIN 9.8 g/dl (12.0-16.0); LYMPHOCYTES # 1.8 10^3/ul (0.8-2.9); LYMPHOCYTES % 38.8 % (15.0-51.0); MEAN CORPUSCULAR HEMOGLOBIN 25.4 pg (29.0-33.0); MEAN CORPUSCULAR HGB CONC 31.6 g/dl (32.0-37.0); MEAN CORPUSCULAR VOLUME 80.3 fl (82.0-101.0); MEAN PLATELET VOLUME 10.5 fl (7.4-10.4); MONOCYTE # 0.5 10^3/ul (0.3-0.9); MONOCYTES % 11.3 % (0.0-11.0); NEUTROPHILS % 43.9 % (39.0-77.0); PLATELET COUNT 240 10^3/UL (140-415); RED BLOOD COUNT 3.86 10^6/ul (4.20-5.40); RED CELL DISTRIBUTION WIDTH 18.7 % (11.5-14.5)
[2018-07-18 07:13] LABS: WHITE BLOOD COUNT 4.5 10^3/ul (4.8-10.8)
[2018-07-18 07:45] LABS: ANION GAP 13 (5-13); BLOOD UREA NITROGEN 17 mg/dl (7-20); CALCIUM 9.4 mg/dl (8.4-10.2); CARBON DIOXIDE 26 mmol/L (21-31); CHLORIDE 103 mmol/L (97-110); Estimated GFR > 60 mL/min (>60); GLUCOSE 116 mg/dl (70-220); POTASSIUM 3.8 mmol/L (3.5-5.1); SODIUM 142 mmol/L (135-144)
[2018-07-18] MEDS: ZINC SULFATE 220 MG CAP PO (08:52)
[2018-07-18] MEDS: LACTOBACILLUS RHAMNOSUS CAP PO ×2 (08:52→20:07)
[2018-07-18] MEDS: CHOLECALCIFEROL 2,000 UNIT CAP PO (08:52)
[2018-07-18] MEDS: traZODone 50 MG TAB PO ×2 (08:52→20:07)
[2018-07-18] MEDS: METHADONE (1 MG/ML 5 ML PO UD SYG) PO ×3 (08:53→20:07)
[2018-07-18] MEDS: PROMETHAZINE/CODEINE 5ML CUP PO ×4 (09:03→23:20)
[2018-07-18] MEDS: MUPIROCIN 2% 22 GM OINT TOP ×3 (10:56→20:07)
[2018-07-18] MEDS: ACETAMINOPHEN 500 MG TAB PO (14:12)
[2018-07-18] MEDS: LEVOFLOXACIN 750MG/D5W (PMX) 150 ML IVPB (14:47)
[2018-07-18 15:46] LABS: ANTI-DNA (DOUBLE STRANDED) 143 U/mL (< 301)
[2018-07-18 16:32] LABS: CARDIOLIPIN AB - IGA <11 APL; CARDIOLIPIN AB - IGG <14 GPL; CARDIOLIPIN AB - IGM <12 MPL
[2018-07-18] MEDS: ZOLPIDEM 5 MG TAB PO (20:07)
[2018-07-19] MEDS: DIPHENHYDRAMINE 50 MG INJ IV ×6 (02:16→22:36)
[2018-07-19] MEDS: HYDROmorphONE 2 MG TAB PO ×3 (02:16→16:24)
[2018-07-19] MEDS: PANTOPRAZOLE (EC) 40 MG TAB PO (06:08)
[2018-07-19] MEDS: LEVOTHYROXINE 50 MCG TAB PO (06:08)
[2018-07-19] MEDS: HYDROmorphONE 1 MG/ML SYG IV ×4 (06:13→22:36)
[2018-07-19] MEDS: PROMETHAZINE/CODEINE 5ML CUP PO ×4 (08:50→23:17)
[2018-07-19] MEDS: traZODone 50 MG TAB PO ×2 (08:50→21:00)
[2018-07-19] MEDS: CHOLECALCIFEROL 2,000 UNIT CAP PO (08:50)
[2018-07-19] MEDS: ZINC SULFATE 220 MG CAP PO (08:50)
[2018-07-19] MEDS: LACTOBACILLUS RHAMNOSUS CAP PO ×2 (08:50→21:00)
[2018-07-19] MEDS: METHADONE (1 MG/ML 5 ML PO UD SYG) PO ×3 (08:57→21:00)
[2018-07-19] MEDS: MUPIROCIN 2% 22 GM OINT TOP ×3 (08:58→21:00)
[2018-07-19] MEDS: LORAZEPAM 2 MG INJ IV ×2 (10:20→17:43)
[2018-07-19] MEDS: LEVOFLOXACIN 750MG/D5W (PMX) 150 ML IVPB (15:54)
[2018-07-19 16:06] LABS: B2 GLYCOPROTEIN I AB (IGA) <9 SAU (< OR = 20); B2 GLYCOPROTEIN I AB (IGG) <9 SGU (< OR = 20); B2 GLYCOPROTEIN I AB (IGM) <9 SMU (< OR = 20)
[2018-07-19] MEDS: ZOLPIDEM 5 MG TAB PO (23:17)
[2018-07-20] MEDS: LORAZEPAM 2 MG INJ IV ×4 (01:05→22:29)
[2018-07-20] MEDS: DIPHENHYDRAMINE 50 MG INJ IV ×5 (02:33→18:29)
[2018-07-20] MEDS: HYDROmorphONE 2 MG TAB PO ×3 (02:36→21:06)
[2018-07-20] MEDS: LEVOTHYROXINE 50 MCG TAB PO (06:36)
[2018-07-20] MEDS: PANTOPRAZOLE (EC) 40 MG TAB PO (06:36)
[2018-07-20] MEDS: HYDROmorphONE 1 MG/ML SYG IV ×3 (06:37→18:29)
[2018-07-20 07:24] LABS: ADD MAN DIFF? NO
[2018-07-20 07:30] LABS: WHITE BLOOD COUNT 4.2 10^3/ul (4.8-10.8)
[2018-07-20 07:30] LABS: BASOPHILS % 0.7 % (0.0-2.0); EOSINOPHILS # 0.1 10^3/ul (0.0-0.5); EOSINOPHILS % 3.1 % (0.0-7.0); HEMATOCRIT 24.1 % (37.0-47.0); HEMOGLOBIN 7.6 g/dl (12.0-16.0); MEAN CORPUSCULAR HEMOGLOBIN 25.4 pg (29.0-33.0); MEAN CORPUSCULAR HGB CONC 31.5 g/dl (32.0-37.0); MEAN CORPUSCULAR VOLUME 80.6 fl (82.0-101.0); MEAN PLATELET VOLUME 10.5 fl (7.4-10.4); MONOCYTE # 0.5 10^3/ul (0.3-0.9); MONOCYTES % 11.9 % (0.0-11.0); NEUTROPHIL # 2.5 10^3/ul (1.6-7.5); NEUTROPHILS % 59.3 % (39.0-77.0); PLATELET COUNT 224 10^3/UL (140-415); RED BLOOD COUNT 2.99 10^6/ul (4.20-5.40); RED CELL DISTRIBUTION WIDTH 18.2 % (11.5-14.5)
[2018-07-20 07:47] LABS: ALANINE AMINOTRANSFERASE 27 IU/L (13-69); ALBUMIN 3.4 g/dl (3.3-4.9); ALBUMIN/GLOBULIN RATIO 1.21; ALKALINE PHOSPHATASE 60 IU/L (42-121); ANION GAP 8 (5-13); ASPARTATE AMINO TRANSFERASE 31 IU/L (15-46); BILIRUBIN,INDIRECT 0.3 mg/dl (0-1.1); BILIRUBIN,TOTAL 0.3 mg/dl (0.2-1.3); BLOOD UREA NITROGEN 17 mg/dl (7-20); CALCIUM 8.9 mg/dl (8.4-10.2); CARBON DIOXIDE 27 mmol/L (21-31); CHLORIDE 107 mmol/L (97-110); Estimated GFR > 60 mL/min (>60); GLUCOSE 93 mg/dl (70-220); INR 0.97; POTASSIUM 3.8 mmol/L (3.5-5.1); SODIUM 142 mmol/L (135-144); TOTAL PROTEIN 6.2 g/dl (6.1-8.1)
[2018-07-20 07:50] LABS: MAGNESIUM 1.9 mg/dl (1.7-2.5)
[2018-07-20 07:50] LABS: PHOSPHORUS 4.5 mg/dl (2.5-4.9)
[2018-07-20] MEDS: CHOLECALCIFEROL 2,000 UNIT CAP PO (08:33)
[2018-07-20] MEDS: LACTOBACILLUS RHAMNOSUS CAP PO ×2 (08:33→21:06)
[2018-07-20] MEDS: ZINC SULFATE 220 MG CAP PO (08:33)
[2018-07-20] MEDS: PROMETHAZINE/CODEINE 5ML CUP PO ×2 (08:35→13:35)
[2018-07-20] MEDS: METHADONE (1 MG/ML 5 ML PO UD SYG) PO ×3 (08:35→21:06)
[2018-07-20] MEDS: MUPIROCIN 2% 22 GM OINT TOP ×3 (08:42→21:00)
[2018-07-20] MEDS: traZODone 50 MG TAB PO ×2 (10:34→21:06)
[2018-07-20] MEDS: LEVOFLOXACIN 750MG/D5W (PMX) 150 ML IVPB (14:25)
[2018-07-20] MEDS: ZOLPIDEM 5 MG TAB PO (21:17)
[2018-07-20] MEDS: HYDROCODONE/HOMATROPINE 5ML CUP PO (21:31)
[2018-07-20] MEDS: HYDROmorphONE 0.5 MG/0.5 ML SYG IV (23:40)
[2018-07-21] MEDS: DIPHENHYDRAMINE 50 MG INJ IV ×6 (02:30→22:42)
[2018-07-21] MEDS: HYDROmorphONE 1 MG/ML SYG IV ×3 (02:31→18:45)
[2018-07-21] MEDS: LORAZEPAM 2 MG INJ IV ×3 (04:33→17:43)
[2018-07-21 06:09] LABS: ADD MAN DIFF? NO
[2018-07-21 06:14] LABS: WHITE BLOOD COUNT 4.3 10^3/ul (4.8-10.8)
[2018-07-21 06:14] LABS: BASOPHILS % 0.7 % (0.0-2.0); EOSINOPHILS # 0.2 10^3/ul (0.0-0.5); EOSINOPHILS % 3.8 % (0.0-7.0); HEMATOCRIT 24.1 % (37.0-47.0); HEMOGLOBIN 7.6 g/dl (12.0-16.0); LYMPHOCYTES # 1.4 10^3/ul (0.8-2.9); LYMPHOCYTES % 33.8 % (15.0-51.0); MEAN CORPUSCULAR HEMOGLOBIN 25.2 pg (29.0-33.0); MEAN CORPUSCULAR HGB CONC 31.5 g/dl (32.0-37.0); MEAN CORPUSCULAR VOLUME 80.1 fl (82.0-101.0); MEAN PLATELET VOLUME 10.4 fl (7.4-10.4); MONOCYTE # 0.5 10^3/ul (0.3-0.9); MONOCYTES % 11.5 % (0.0-11.0); NEUTROPHIL # 2.1 10^3/ul (1.6-7.5); NEUTROPHILS % 49.5 % (39.0-77.0); PLATELET COUNT 247 10^3/UL (140-415); RED BLOOD COUNT 3.01 10^6/ul (4.20-5.40); RED CELL DISTRIBUTION WIDTH 17.9 % (11.5-14.5)
[2018-07-21] MEDS: HYDROCODONE/HOMATROPINE 5ML CUP PO ×3 (06:33→17:36)
[2018-07-21] MEDS: LEVOTHYROXINE 50 MCG TAB PO (06:33)
[2018-07-21] MEDS: PANTOPRAZOLE (EC) 40 MG TAB PO (06:33)
[2018-07-21 06:45] LABS: MAGNESIUM 1.9 mg/dl (1.7-2.5)
[2018-07-21 06:45] LABS: PHOSPHORUS 5.8 mg/dl (2.5-4.9)
[2018-07-21 06:59] LABS: ANION GAP 11 (5-13); BLOOD UREA NITROGEN 17 mg/dl (7-20); CALCIUM 9.1 mg/dl (8.4-10.2); CARBON DIOXIDE 26 mmol/L (21-31); CHLORIDE 105 mmol/L (97-110); CREATININE 0.45 mg/dl (0.44-1.00); Estimated GFR > 60 mL/min (>60); GLUCOSE 95 mg/dl (70-220); POTASSIUM 3.4 mmol/L (3.5-5.1); SODIUM 142 mmol/L (135-144)
[2018-07-21] MEDS: LACTOBACILLUS RHAMNOSUS CAP PO ×2 (08:21→23:08)
[2018-07-21] MEDS: ZINC SULFATE 220 MG CAP PO (08:21)
[2018-07-21] MEDS: CHOLECALCIFEROL 2,000 UNIT CAP PO (08:21)
[2018-07-21] MEDS: traZODone 50 MG TAB PO ×2 (08:21→23:08)
[2018-07-21] MEDS: METHADONE (1 MG/ML 5 ML PO UD SYG) PO ×3 (08:21→23:09)
[2018-07-21] MEDS: CEPASTAT LOZENGE MT (08:27)
[2018-07-21] MEDS: MUPIROCIN 2% 22 GM OINT TOP ×3 (08:29→23:13)
[2018-07-21] MEDS: POTASSIUM CHLORIDE (SR) 20 MEQ TAB PO (11:49)
[2018-07-21] MEDS: HYDROmorphONE 2 MG TAB PO ×2 (14:13→22:08)
[2018-07-21] MEDS: LEVOFLOXACIN 750MG/D5W (PMX) 150 ML IVPB (14:24)
[2018-07-21] MEDS: ZOLPIDEM 5 MG TAB PO (23:17)
== END 2018-07-22 01:40 | disposition short-term general hospital (02) | DRG 385 ==
LOC: PP2 06-17 20:39 → 5EC 06-30 21:00 → E/R 13:46 → 6WM 17:22
PROC: 0DBE8ZX Excision of Large Intestine, Via Natural or Artificial Opening Endoscopic, Diagnostic (ICD-10-PCS; principal; 2018-06-09 15:45)
PROC: 0DJ08ZZ Inspection of Upper Intestinal Tract, Via Natural or Artificial Opening Endoscopic (ICD-10-PCS; 2018-06-09 15:45)
PROC: 0BJ08ZZ Inspection of Tracheobronchial Tree, Via Natural or Artificial Opening Endoscopic (ICD-10-PCS; 2018-06-09 15:45)
PROC: 07DR3ZX Extraction of Iliac Bone Marrow, Percutaneous Approach, Diagnostic (ICD-10-PCS; 2018-06-09 15:45)
PROC: 30233N1 Transfusion of Nonautologous Red Blood Cells into Peripheral Vein, Percutaneous Approach (ICD-10-PCS; 2018-06-09 15:45)
PROC: 0DBE8ZX Excision of Large Intestine, Via Natural or Artificial Opening Endoscopic, Diagnostic (ICD-10-PCS; 2018-06-09 15:45)
PROC: 0CJS8ZZ Inspection of Larynx, Via Natural or Artificial Opening Endoscopic (ICD-10-PCS; 2018-06-09 15:45)
PROC: 0DJ08ZZ Inspection of Upper Intestinal Tract, Via Natural or Artificial Opening Endoscopic (ICD-10-PCS; 2018-06-09 15:45)
DX: K51.011 Ulcerative (chronic) pancolitis with rectal bleeding (principal); A41.1 Sepsis due to other specified staphylococcus; A07.1 Giardiasis [lambliasis]; D62 Acute posthemorrhagic anemia; R04.2 Hemoptysis; I82.412 Acute embolism and thrombosis of left femoral vein; F33.9 Major depressive disorder, recurrent, unspecified; N39.0 Urinary tract infection, site not specified; K92.0 Hematemesis; K51.018 Ulcerative (chronic) pancolitis with other complication; Z86.711 Personal history of pulmonary embolism; D56.3 Thalassemia minor; G89.4 Chronic pain syndrome; K14.0 Glossitis; E03.9 Hypothyroidism, unspecified; E78.00 Pure hypercholesterolemia, unspecified; R73.9 Hyperglycemia, unspecified; R07.9 Chest pain, unspecified; Z85.850 Personal history of malignant neoplasm of thyroid; H10.9 Unspecified conjunctivitis; R91.8 Other nonspecific abnormal finding of lung field; R04.0 Epistaxis; K44.9 Diaphragmatic hernia without obstruction or gangrene
CPT/HCPCS: 36415; 36430; 71045; 71046; 71250; 71275; 74018; 74176; 76641-50; 77012; 78582; 78806; 80048; 80053; 81001; 81003; 81025; 82270; 82271; 82550; 82607; 82668; 82728; 82746; 82962; 83010; 83020; 83036; 83540; 83605; 83615; 83690; 83735; 84100; 84132; 84145; 84155; 84165; 84432; 84443; 84484; 84703; 85014; 85018; 85025; 85045; 85049; 85240; 85384; 85610; 85613; 85651; 85670; 85730; 86021; 86038; 86140; 86146; 86147; 86200; 86226; 86235; 86430; 86480; 86592; 86606; 86635; 86674; 86703; 86800; 86850; 86870; 86900; 86901; 86902; 86920; 87040; 87045; 87070; 87075; 87086; 87102; 87177; 87205; 87529; 88104; 88305; 88311; 88313; 93005; 93306; 93308; 93970; 94640; 96374; 96375; 96376; 99285-25